=== PATIENT | female | born 1985 | race Caucasian/White ===

== ENCOUNTER 2019-11-26 09:03 | Outpatient (CLI) | payer BC, SELFPAY ==
--- NOTE | ~2019-11-26 | MMUS_ITS ---
EXAMINATION: MM diagnostic daniel BI w danielle, US breast RT limited HISTORY: Right breast mastodynia and swelling TECHNIQUE: Craniocaudal, mediolateral, and mediolateral oblique 3-D tomosynthesis images of the breas ts were performed and synthetic 2-D images were generated. CAD analysis was submitted and interpreted . High resolution limited right breast ultrasound was performed. COMPARISON: None, baseline BREAST PARENCHYMAL COMPOSITION: The breasts are heterogeneously dense, which may obscure small masses . FINDINGS: MAMMOGRAPHIC FINDINGS: Right breast: There is segmental focal asymmetry of the upper outer quadrant of the right breast. Ski n thickening is also noted in the upper outer breast. No suspicious mass, calcification, or conservation or heritage architect ural distortion are identified. Left breast: There is no evidence of suspicious mass, calcification, or architectural distortion to suggest malignancy. There has been no suspicious interval change. ULTRASOUND: There is widespread edema and skin thickening in the upper outer right breast. No suspicious cystic o r solid mass is identified. IMPRESSION: 1. Findings most consistent with mastitis of the right breast. 2. Recommend trial of antibiotics with repeat ultrasound if findings persist. BI-RADS Category 2: Benign finding(s). Reviewed, dictated and finalized at location A. IMPRESSION: 1. Findings most consistent with mastitis of the right breast. 2. Recommend trial of antibiotics with repeat ultrasound if findings persist. BI-RADS Category 2: Benign finding(s).
== END 2019-11-26 09:04 | disposition home or self-care (01) ==
PROVIDERS: Visit Provider Obstetrics & Gynecology
DX: N63.0 Unspecified lump in unspecified breast (principal); R92.8 Other abnormal and inconclusive findings on diagnostic imaging of breast
CPT/HCPCS: 76642; 77062; 77066; G0279

== ENCOUNTER 2020-02-23 20:21 | Emergency (ER) | payer BC, SELFPAY ==
--- NOTE | ~2020-02-23 | CT_ITS ---
EXAMINATION: CT lumbar spine wo con DATE: 02/24/2020 00:35 INDICATION: Severe low back pain TECHNIQUE: Computed tomography (CT) of the lumbar spine was performed without intravenous contrast. A utomated exposure control and iterative reconstruction technique were employed. The dose-length produ ct was 951.19 mGy-cm. COMPARISON: None FINDINGS: Bilateral L3 pars interarticularis defects with 1 mm anterolisthesis on L4. Alignment is otherwise no rmal. Vertebral body heights are normal. No fracture. Mild to moderate disc height loss with prominen t disc bulge resulting in mild central canal stenosis at L3-L4. Mild disc height loss with smaller di sc bulge and lesser degree of mild central canal stenosis at L4-L5. The disc bulges also result in mi ld bilateral neural foraminal stenosis at both levels. At L5-S1 there is moderate disc height loss wi th a disc bulge and right foraminal zone disc extrusion which moderate to severely narrows the right neural foramen. There are aggressive appearing erosive changes along both endplates as well as subtle haziness to the fat surrounding the bulging disc, both findings raising concern for discitis and ost eomyelitis. IUD in expected position within the endometrial canal. IMPRESSION: 1. Moderate disc height loss at L5-S1 with associated aggressive appearing endplate erosions and mild inflammatory haziness to the peridiscal fat which is concerning for discitis and osteomyelitis. Dr. Jimenez discussed these findings with Dr. Freitas at 8:45 AM. 2. Mild to moderate lumbar spondylosis most notable for bilateral pars interarticularis defects at L3 and right foraminal disc extrusion at L5-S1 resulting in moderate severe right neural foraminal sten osis at this level. 3. IUD in expected position. Reviewed, dictated and finalized at location A. IMPRESSION: 1. Moderate disc height loss at L5-S1 with associated aggressive appearing endp late erosions and mild inflammatory haziness to the peridiscal fat which is con cerning for discitis and osteomyelitis. Dr. Jimenez discussed these findings w ith Dr. Freitas at 8:45 AM. 2. Mild to moderate lumbar spondylosis most notable for bilateral pars interart icularis defects at L3 and right foraminal disc extrusion at L5-S1 resulting in moderate severe right neural foraminal stenosis at this level. 3. IUD in expected position.
[2020-02-23 21:08] VITALS: PULSE 98; RESP 18; TEMP 36.3; O2SAT 100
[2020-02-23 22:59] VITALS: BP 125/69; PULSE 70; RESP 14; O2SAT 97
--- NOTE | 2020-02-23 23:43 | ED.BACK ---
HPI - Back Pain/Injury General Chief Complaint: Back Pain/Injury Stated Complaint: back/hip pain Time Seen by Provider: 02/23/20 23:33 History of Present Illness HPI Narrative: Patient presents with her for severe lower back pain. Started a month ago when she got in and out of the jeep. Then they took a 5-hour car ride and when they arrived she could not move. She seen her PCP, and ER, and a chiropractor. She has had different pain medicines none of which are helping. She has sciatica on the right. She has no difficulty with urination or defecation. Sensation is fully intact. MD elicited complaint: back injury Onset (ago): week(s) Timing: constant Severity: severe Similar Symptoms Previously: Yes Location: lumbar spine Exacerbating factors: movement, supine positioning and walking Relieving factors: none Context: turning/twisting Associated symptoms: difficulty walking Related Data Allergies Allergy/AdvReac Type Severity Reaction Status Date / Time No Known Allergies Allergy Unknown Verified 12/08/08 13:51 Review of Systems Review of Systems: Narrative: CONSTITUTIONAL: Denies fever, chills, or sweats. EYES: Denies visual changes, redness, or discharge. ENT: Denies rhinorrhea, congestion, sore throat, or otalgia. CARDIOVASCULAR: Denies chest pain, palpitations, or edema. RESPIRATORY: Denies cough or dyspnea. GASTROINTESTINAL: Denies abdominal pain, nausea, vomiting, or diarrhea. GENITOURINARY: Denies dysuria or hematuria. SKIN: Denies rash or itching. MUSCULOSKELETAL: She has back pain, but not joint pain, or myalgia. NEUROLOGIC: Denies headache, numbness, or weakness. PSYCHIATRIC: Denies anxiety or depression. PMFSH Surgical History Surgical History (Updated 02/23/20 @ 23:45 by Marilyn Mead MD) No pertinent past surgical history Social History Social History (Updated 02/23/20 @ 23:45 by Marilyn Mead MD) Smoking status: Never smoker Alcohol intake: never Substance use: never Exam Narrative: Exam Narrative: GENERAL: Well-appearing, well-nourished, and in no acute distress. Sitting twisted in a wheelchair. HEAD: Normocephalic, atraumatic. EYES: PERRLA and EOMI. ENT: Nares clear, no rhinorrhea or epistaxis. Mucous membranes moist. NECK: Supple. CHEST: Clear to auscultation. No respiratory distress. HEART: Regular rate and rhythm. No murmur heard. Normal peripheral pulses. ABDOMEN: Soft, nontender, nondistended, normal active bowel sounds. EXTREMITIES: Normal range of motion. No edema. SKIN: Warm, dry, no rash. NEURO: No focal deficits. Alert and oriented x3. PSYCH: Normal mood and affect. Back: Tenderness in the lumbar area. Course Reevaluation(s) Reevaluation #1: Went in to tell the patient and her about the bulging disc at the bottom of her spine, and the probability that she will need an MRI and possibly surgery to repair that. She has an appointment for pain management tomorrow, but I told her to keep because they might build to do a steroid injection. I gave her the phone number for Dr. Chiang at [facility], Dr. Kam at [facility]. Date: 02/24/20 Time: 02:17 Vital Signs Vital signs: Vital Signs Temperature 97.4 F L 02/23/20 21:08 Pulse Rate 98 02/23/20 21:08 Respiratory Rate 18 02/23/20 21:08 Pulse Oximetry 100 02/23/20 21:08 Temperature 98.4 F 02/24/20 01:53 Pulse Rate 72 02/24/20 01:53 Respiratory Rate 16 02/24/20 01:53 Blood Pressure 113/73 02/24/20 01:53 Pulse Oximetry 98 02/24/20 01:53 MDM - Back Pain/Injury Differential Diagnosis Differential diagnosis: Likely lumbar radiculopathy and sciatica Medical Records Attestation: I reviewed the patient's medical records. Lab Data Labs: G Bedside Result Negative Reference Range: Negative Discharge Plan Discharge Clinical Impression: Lumbar disc disease Sciatica Qualifiers: Laterality: right Qualified Code(s): M54.31 - Sciatica, right side Patien
[2020-02-24 00:31] VITALS: TEMP 36.3
[2020-02-24 01:53] VITALS: BP 113/73; PULSE 72; RESP 16; TEMP 36.9; O2SAT 98
== END 2020-02-24 02:30 | disposition home or self-care (01) ==
PROVIDERS: Emergency Provider Emergency Medicine; PCP Physician Assistant
DX: M51.26 Other intervertebral disc displacement, lumbar region (principal); M54.41 Lumbago with sciatica, right side; R93.7 Abnormal findings on diagnostic imaging of other parts of musculoskeletal system
CPT/HCPCS: 72131; 81025; 96372; 99284; J1170

== ENCOUNTER 2020-03-09 08:34 | Outpatient (CLI) | payer BC, SELFPAY ==
--- NOTE | ~2020-03-09 | MR_ITS ---
EXAMINATION: MR lumbar spine wo con DATE: 03/09/2020 09:10 INDICATION: Lumbago with severe low back pain TECHNIQUE: Magnetic resonance imaging (MRI) of the lumbar spine was performed without intravenous con trast. Sequences included sagittal T2-weighted FSE, sagittal T2-weighted FS FSE, sagittal T1-weighted FSE, and axial T2-weighted FSE. COMPARISON: 02/24/2020 FINDINGS: Straightening of the normal lumbar lordosis. Vertebral body heights are normal. Bilateral pars intera rticularis defects at L3 without spondylolisthesis. Disc desiccation, annular fissure and mild to mod erate disc height loss at L3-L4. There is associated disc bulge resulting in mild central canal steno sis at this level. Disc desiccation and mild disc height loss at L4-L5 with mild disc bulge which olguin s not significantly narrow the central canal. Additional mild disc bulges with only minimal central c anal stenosis at the T11-T12 through L1-L2. The conus terminates at L2. There is normal spinal cord s ignal. T1 hyperintense hemangiomas at T12 and S1. Fibrofatty degenerative endplate changes at L3-L4. Severe disc height loss at L5-S1. There is increased fluid signal at the disc space as well as promin ent marrow edema and loss of T1 marrow fat signal in the adjacent L5 and S1 vertebral bodies. Erosive changes are seen at the endplates. Findings are consistent with discitis and osteomyelitis. There is peridiscal edema in the surrounding soft tissues. The fluid signal within the disc space appears to bulge the margins of the disc extending slightly cephalad and caudal to the level of the endplates al shyanne the right anterolateral margin of the disc space. Posterior there is also a small likely epidural fluid collection/abscess at the right foraminal zone and at the right lateral recess where it extend s approximately 1.4 cm craniocaudally and measuring 5 mm in AP thickness. There is additional edema a t the left and right lateral recesses with the disc bulge/likely abscess resulting in mild stenosis a t the left neural foramen and moderate stenosis at the right neural foramen. IMPRESSION: 1. Disc and marrow signal changes centered at L5-S1 consistent with discitis and osteomyelitis of bot h vertebral bodies. There also appears be a small peridiscal/epidural abscess most prominent at the r ight foraminal zone which moderately narrows the neural foramen. Dr. Jimenez discussed these finding s with Dr. Petit at 2:45 PM. 2. Mild to moderate lumbar spondylosis with chronic bilateral pars intra-articular is defects at L3. Reviewed, dictated and finalized at location A. IMPRESSION: 1. Disc and marrow signal changes centered at L5-S1 consistent with discitis an d osteomyelitis of both vertebral bodies. There also appears be a small peridis aleja/epidural abscess most prominent at the right foraminal zone which moderatel y narrows the neural foramen. Dr. Jimenez discussed these findings with Dr. Maurizio knapp at 2:45 PM. 2. Mild to moderate lumbar spondylosis with chronic bilateral pars intra-articu lar is defects at L3.
== END 2020-03-09 08:35 ==
PROVIDERS: PCP Physician Assistant; Visit Provider Nurse Practitioner Family
DX: M47.896 Other spondylosis, lumbar region (principal)
CPT/HCPCS: 72148

== ENCOUNTER 2025-05-05 10:26 | Outpatient (CLI) | payer BC, SELFPAY ==
--- NOTE | ~2025-05-05 | MMUS_ITS ---
EXAMINATION: MM diagnostic daniel BI w danielle, US breast RT limited INDICATION: 40-year old female; presents with a palpable lump in right breast that she felt a month ago. Patient cannot feel the lump at this time. She is also due for annual mammography. COMPARISON: 11/26/2019 TECHNIQUE: Digital breast tomosynthesis bilateral ML, MLO and CC views and spot compression with magnification in CC and MLO views of right breast were obtained with computer-aided detection to assist in interpretation of the study. FINDINGS: The breasts are heterogeneously dense, which may obscure small masses. Irregular shaped mass containing punctate calcifications has developed and persists on spot compression views in the upper slightly outer right breast at middle third. In addition, there is a focal asymmetry with subtle architectural distortion seen in the superior central right breast at posterior third. Several punctate calcifications are associated with this focal asymmetry. Ultrasound was performed for further evaluation. RIGHT BREAST ULTRASOUND FINDINGS: Targeted evaluation of upper outer right breast was completed. Prominent dilated ducts and several cysts including a cluster of cysts at demonstrated at 11:00, 4 cm FN and at 11:00, 2 cm from the nipple. These sonographic findings does not correlates to the areas of concern on the mammogram. IMPRESSION: 1. Suspicious right breast irregular marginated mass containing calcifications in the upper slightly outer location. 2. Indeterminate focal asymmetry associated with subtle architectural distortion and containing several foci of calcifications. 3. No mammographic evidence of malignancy within the left breast. RECOMMENDATIONS: 1. Given the disparity between the mammography findings and lack of correlating lesion on the ultrasound examination, bilateral breast MRI is recommended for problem solving which should be completed before the biopsy. 2. Consider stereotactic core needle biopsy of mass containing calcification in the upper outer right breast. BI-RADS 4, SUSPICIOUS Reviewed, dictated and finalized at location B. IMPRESSION: 1. Suspicious right breast irregular marginated mass containing calcifications in the upper slightly outer location. 2. Indeterminate focal asymmetry associated with subtle architectural distorti on and containing several foci of calcifications. 3. No mammographic evidence of malignancy within the left breast. RECOMMENDATIONS: 1. Given the disparity between the mammography findings and lack of correlatin g lesion on the ultrasound examination, bilateral breast MRI is recommended for problem solving which should be completed before the biopsy. 2. Consider stereotactic core needle biopsy of mass containing calcification i n the upper outer right breast. BI-RADS 4, SUSPICIOUS
--- OUTSIDE RECORDS SUMMARY | 2025-05-05 12:10 | XMS_ITS | Encounter Summary ---
Author Organization [facility] Address [address] [place] [address] Care Team Providers Care Wire Machine Cutter Name Role Phone Rhea Patiño Primary Care Provider [phone] Encounter Details Date Type Department Care Team (Late st Contact Info) Description 03/20/2020 Hospital Orders Only [facility] [address] [place] [address] Kiko Rubio MD [address] [address] Social History Tobacco Use Types Packs/Day Years Used Date Smoking Tobacco: Every Day Cigarettes 0.3 15 Smokeless Tobacco: Never Alcohol Use Standard Drinks/Week Comments Yes 0 (1 standard drink = 0.6 oz pur e alcohol) socially AUDIT-C Answer Date Recorded Frequency of Alcohol Consumption 2-4 times a sun03/10/2020 Average Number of Drinks Not on file 020 Frequency of Binge Drinking Not on file 02/24 Comments No Sex and Gender Information Value Date Recorded Sex Assigned at Female 03/11/2020 1:09 AM CDT Legal Sex Female 5:57 PM CDT Gender Identity Female 03/11/2020 1:09 AM CDT Sexual Orientation Straight 03/11/2020 1: 09 AM CDT COVID-19 Exposure Response Date Recorded In the last month, have you been in contact with someone who was confirmed or suspected to have Coronavirus / COVID-19? No / Unsure 03/23/2020 11:56 AM CDT documented as of this encounter Functional Status * RETIRED Are you deaf or do you have serious difficulty hearing Answer Date of Assessment Author Status No 03/11/2020 1:12 AM CDT Activ e * RETIRED Are you blind or do you have serious difficulty seeing, even when wearing glasses? Answer Date of Assessment Author Status No 03/11/2020 1:12 AM CDT Activ e * Do you have serious difficulty walking or climbing stairs? Answer Date of Assessment Author Status No 03/11/2020 1:12 AM CDT Rama Purcell RN Active * Do you have difficulty dressing or bathing? Answer Date of Assessment Author Status No 03/11/2020 1:12 AM CDT Rama Purcell RN Active * Because of a physical, mental, or emotional condition, do you have difficulty doing errands alone such as visiting a doctor's office or shopping? Answer Date of Assessment Author Status No 03/11/2020 1:12 AM CDT Rama Purcell RN Active documented as of this encounter Mental Status * Because of a physical, mental, or emotional condition, do you have serious difficulty concentrating, remembering, or making decisions? Answer Entry Date Author Status No 03/11/2020 1:12 AM CDT Rama Purcell RN Active documented in this encounter Plan of Treatment Not on file documented as of this encounter Visit Diagnoses Not on filedocumented in this encounter Care Teams Wire Machine Cutter Relationship Specialty Start [place] [address] [place] [address] PCP - General PHYSICIAN MANNEQUIN MOLDER 02/19/20 documented as of this encounter
--- OUTSIDE RECORDS SUMMARY | 2025-05-05 12:10 | XMS_ITS | Encounter Summary ---
Author Organization [facility] Address [address] [place] [address] Care Team Providers Care Master Coastwise Yacht Name Role Phone Rhea Patiño Primary Care Provider [phone] Encounter Details Date Type Department Care Team (Late st Contact Info) Description 04/12/2020 Therapy Plan [facility] [address] [place], [place] [id number] Social History Tobacco Use Types Packs/Day Years [...] have Coronavirus / COVID-19? No / Unsure 04/15/2020 12:00 PM CDT documented as of this encounter Functional [...] Assessment Author Status No 03/11/2020 1:12 AM CARLEYT Rama Purcell RN Active documented as of this encounter Mental Status * Because of a physical, mental, or emotional condition, do you have serious difficulty concentrating, remembering, or making decisions? Answer Entry Date Author Status No 03/11/2020 1:12 AM Rama Tinsley RN Active documented in this encounter Plan of Treatment Not on file documented as of this encounter Visit Diagnoses Not on filedocumented in this encounter Care Teams Master [employer] Yacht Relationship Specialty Start [place] [address] [place] [address] PCP - General PHYSICIAN PLANT ENGINEER 02/19/20 documented as of this encounter
--- OUTSIDE RECORDS SUMMARY | 2025-05-05 12:10 | XMS_ITS | Encounter Summary ---
Author Organization [facility] Address [address] [place] [address] Care Team Providers Care Radiation Control Specialist Name Role Phone Rhea Patiño Primary Care Provider [phone] Encounter Details Date Type Department Care Team (Late st Contact Info) Description 03/16/2020 Therapy Plan [facility] [address] [place] [address] Kiko Rubio MD [address] [address] Social History Tobacco Use Types [...] have Coronavirus / COVID-19? No / Unsure 03/19/2020 12:01 PM CDT documented as of this encounter [...] Assessment Author Status No 03/11/2020 1:12 AM Rama Tinsley RN Active documented as of this encounter Mental Status * Because of a physical, mental, or emotional condition, do you have serious difficulty concentrating, remembering, or making decisions? Answer Entry Date Author Status No 03/11/2020 1:12 AM Rama Tinsley RN Active documented in this encounter Plan of Treatment Not on file documented as of this encounter Visit Diagnoses Diagnosis Osteomyelitis, unspecified site, unspecified type (CMS/HCC [facility])- Primary documented in this encounter Care Teams Radiation Control Specialist Relationship Specialty Start [place] [address] [place] [address] PCP - General PHYSICIAN COURT MONITOR 02/19/20 documented as of this encounter
--- OUTSIDE RECORDS SUMMARY | 2025-05-05 12:10 | XMS_ITS | Clinical Summary ---
Author Organization [facility] Address [facility] [place] [address] Care Team Providers Care Flight Service Specialist Name Role Phone Rhea Patiño Primary Care Provider [phone] Allergies Active Allergy Reactions Criticality Noted Date Comments Vancomycin Redmans syndrome Low 03/12/2020 Medications No known medications Active Problems Problem Noted Date Diagnosed Date Osteomyelitis, unspecified s ite, unspecified type ([facility]/HCC [facility]) 03/10/2020 Discitis 03/10/2020 Immunizations Immunization Administration Dates Next Due PFIZER COVID-19 (ORIGINAL FO RMULATION, PURPLE CAP) mRNA, LNP-S, PF, 30 MCG/0.3 ML DOSE 05/03/2021,04/07/2021 Family History Medical History Relation Comments Hypertension Father Hypertension Mother Relation Status Comments Father Alive Mother Alive Social History Tobacco Use Types Packs/Day Years Used Date Smoking Tobacco: Every Day Cigarettes 0.3 15 Passive Smoke Exposure: Current Smokeless Tobacco: Never Tobacco Cessation:Ready to Q uit: No; Counseling Given: Yes Alcohol Use Standard Drinks/Week Comments Yes 0 (1 standard drink = 0.6 oz pur e alcohol) socially AUDIT-C Answer Date Recorded Frequency of Alcohol Consumption 2-4 times a mon th 03/10/2020 Average Number of Drinks Not on file 020 Frequency of Binge Drinking Not on file 02/24 PHQ-2 Answer Date Recorded Patient Health Questionnaire-2 Score 0 06/11/2023 Comments No Sex and Gender Information Value Date Recorded Sex Assigned at Female 03/11/2020 1:09 AM CDT Legal Sex Female 5:57 PM CDT Gender Identity Female 03/11/2020 1:09 AM CDT Sexual Orientation Straight 03/11/2020 1: 09 AM CDT Last Filed Vital Signs Vital Sign Reading Time Taken Comments Blood Pressure 139/80 06/11/2023 11:46 AM CDT Pulse 87 06/11/2023 11:46 AM CDT Temperature 37 C (98.6 F) 06/11/2023 11:46 AM CDT Respiratory Rate 18 06/11/2023 11:46 AM CDT Oxygen Saturation 96% 06/11/2023 11:46 AM CDT Inhaled Oxygen Concentration - - Weight 100.7 kg (222 lb) 06/11/2023 11:46 AM CDT Height 167.6 cm (5' 6) 06/11/2023 11:46 AM CDT Body Mass Index 35.83 06/11/2023 11:46 AM CDT Plan of Treatment Health Maintenance Due Date Last Done Comments Annual Physical 1987 Hepatitis C 2002 DTaP, Tdap and Td Vaccines ( 1 - Tdap) 2003 Hepatitis B Vaccines (1 of 3 - 19+ 3-dose series) 2003 Pneumococcal Vaccine: Pediatrics (0 to 5 Years) and At-Risk Patients (6 to 49 Years) (1 of 2 - PCV) 2003 HPV Vaccines (1 - 3-dose SCD M series) 2011 Cervical Cancer Screening Pa p with HPV Testing (Age 30 to 64) Every 5 Years 2014 Cervical Cancer Screening Pa p Smear (Age 30 to 64) Every 3 Years 04/09/2016 04/09/2013 Cervical Cancer Screening wi HPV 04/09/2016 Mammogram Screening 2024 PHQ-2 (Physician [place]uther[place]) 08/27/2024 06/11/2023 COVID-19 Vaccine (3 - 2024-2 6 season) 2025 05/03/2021, 04/07/2021 Meningococcal B Vaccine Aged Out No l onger eligible based on patient's age to complete this topic Meningococcal Vaccine Aged Out No allie odette eligible based on patient's age to complete this topic RSV Immunizations Under 20 Months Aged Out No longer eligible b ased on patient's age to complete this topic Procedures Procedure Name Priority Date/Time Associated Diagnosis Comments OUTSIDE CYTOPATH CERV/VAG INTERPRET (PAP) (SCAN ORDER) Routine 04/09/2013 12:00 AM CDT from Last 3 Months or Most Recently Relevant to Health Maintenance Results * PAP SMEAR (04/09/2013 12:00 AM CDT) 04/09/2013 us Documents Scanned SCANNING Final Result [facility] from Last 3 Months or Most Recently Relevant to Health Maintenance Insurance Advance Directives * Full Code (Latest Code Status on File) Date Activated Date Inactivated Comments 03/11/2020 12:01 AM 03/15/2020 8:19 PM Care Teams Flight Service Specialist Relationship Specialty Start [place] [address] [place] [address] PCP - General PHYSICIAN SLIVER LAP TENDER 02/19/20
--- OUTSIDE RECORDS SUMMARY | 2025-05-05 12:10 | XMS_ITS | Clinical Summary ---
Author Organization [facility] [address] Address [address] [facility] [address] [place] [address] Phone Care Team Providers Care Cookie Padder Name Role Phone Unavailable Primary Care Provider Unavailabl e Social History Tobacco Use Types Packs/Day Years Used Date Smoking Tobacco: Never Assessed Comments Unknown Sex and Gender Information Value Date Recorded Sex Assigned at Not on file Legal Sex Female 1:32 PM CDT Gender Identity Not on file Sexual Orientation Not on file Plan of Treatment Health Maintenance Due Date Last Done Comments DTAP/TDAP/TD VACCINES (1 - Tdap) 2003 HEPATITIS B VACCINES (1 of 3 - 19+ 3-dose series) 02/24 HPV/Cotest (21-29) 2005 HPV VACCINES (1 - 3-dose SCDM series) 2011 CERVICAL CANCER SCREENING 2014 HPV/Cotest (30-65) 2014 PAP SMEAR 2014 BREAST CANCER SCREENING 2024 INFLUENZA VACCINE (#1) 2025
== END 2025-05-05 10:27 | disposition home or self-care (01) ==
LOC: ANHFOHIMG 10:29
PROVIDERS: PCP Physician Assistant; Visit Provider Student in an Organized Health Care Education/Training Program
DX: N63.0 Unspecified lump in unspecified breast (principal); R92.8 Other abnormal and inconclusive findings on diagnostic imaging of breast
CPT/HCPCS: 76642; 77062; 77066; G0279

== ENCOUNTER 2025-06-10 06:53 | Outpatient (CLI) | payer BC, SELFPAY ==
--- NOTE | ~2025-06-10 | MR_ITS ---
MR breast BI wo/w con 06/15/2025 11:44 CDT INDICATION: Abnormal finding on recent mammogram without correlate on ultrasound. TECHNIQUE: MRI of the breasts perform using standard protocol pre-and post IV contrast with the following sequences: Axial T2 STIR, axial T1, axial vibrant T1 with fat suppression precontrast and multiphasic postcontrast. 19 cc MultiHance administered intravenously. COMPARISON: Comparison to multiple prior studies sequentially, with oldest reviewed study dated 11/26/2019. FINDINGS: Right breast: There is mild background parenchymal enhancement. There is a region of nonmass-like enhancement in the right breast in the upper outer quadrant at approximately 10:00, anterior third, measuring 4.2 x 2.3 x 4 cm. Enhancement is heterogeneous with rapid initial uptake and washout (type III kinetics). No discrete mass or internal septations identified. No associated skin thickening or chest wall invasion. No abnormal axillary or internal mammary lymph nodes are identified. Left breast: No suspicious mass or nonmass enhancement. Background parenchymal enhancement is mild. No abnormal lymph nodes are seen. IMPRESSION: 1: Suspicious nonmass-like enhancement in the right breast upper outer quadrant at 10:00, anterior third, measuring 4.2 x 2.3 x 4 cm with rapid washout enhancement. BI-RADS Category 4: Suspicious abnormality. Recommend MR guided biopsy for histologic diagnosis. BI-RADS CATEGORY 4-SUSPICIOUS ABNORMALITY Reviewed, dictated and finalized at location O. IMPRESSION: 1: Suspicious nonmass-like enhancement in the right breast upper outer quadrant at 10:00, anterior third, measuring 4.2 x 2.3 x 4 cm with rapid washout enhanc ement. BI-RADS Category 4: Suspicious abnormality. Recommend MR guided biopsy f or histologic diagnosis. BI-RADS CATEGORY 4-SUSPICIOUS ABNORMALITY
== END 2025-06-10 06:54 | disposition home or self-care (01) ==
PROVIDERS: PCP Physician Assistant; Visit Provider Student in an Organized Health Care Education/Training Program
DX: N63.11 Unspecified lump in the right breast, upper outer quadrant (principal)
CPT/HCPCS: 77049; A9577; C8908

== ENCOUNTER 2025-06-30 08:26 | Outpatient (CLI) | payer BC, SELFPAY ==
--- NOTE | ~2025-06-30 | MM_ITS ---
AutoText: MM stereotactic bx RT, MM stereotactic specimen RT CLINICAL HISTORY: 40-year-old female with suspicious nonmass enhancement in the upper outer right breast 10:00 location with correlating mammographic focal asymmetry that contains calcifications. Patient presents for stereotactic core needle biopsy procedure. PROCEDURE: Stereotactic breast biopsy. The patient was brought into the stereotactic suite. A time-out procedure was performed. Preliminary images of the right breast were obtained to localize the focal asymmetry with calcifications. The area was then prepped and draped in the usual sterile fashion. 1% lidocaine was administered to the superficial soft tissues and 1% lidocaine without epinephrine was administered to the deeper soft tissues for local anesthesia. A becki was made in the skin and the 9 gauge Brevera biopsy needle was inserted through the becki and localized to the calcifications with confirmation by mammography. Multiple biopsy specimens were obtained. Images of the biopsy specimens demonstrate numerous calcifications corresponding with the suspicious calcifications associated with focal asymmetry seen on the mammogram. A butterfly [place] Justus was placed in the biopsy site at the end of the procedure. Pressure was held at the site of biopsy and entry site for the needle until hemostasis was achieved. The patient tolerated the procedure well with no immediate post procedure complications. The biopsy specimens were sent to pathology for evaluation. Mammograms of the right breast in the craniocaudal and true lateral projections demonstrate the microclip in the biopsy site. IMPRESSION: Technically successful stereotactic biopsy of right breast focal asymmetry with calcifications. The patient tolerated the procedure well with no immediate post procedure complications. Pathology report is pending. Reviewed, dictated and finalized at location B. MOBILE CONTRACT CLERK IMPRESSION: Technically successful stereotactic biopsy of right breast focal as ymmetry with calcifications. The patient tolerated the procedure well with no i mmediate post procedure complications. Pathology report is pending.
--- OUTSIDE RECORDS SUMMARY | 2025-06-30 08:47 | XMS_ITS | Clinical Summary ---
Author Organization [employer] [address] - [address] Address [address] [facility] [address] [place] [address] Phone Care Team Providers Care Die Storage Clerk Name Role Phone Unavailable Primary Care Provider [...]
--- NOTE | 2025-06-30 10:41 | S_PTH ---
PATIENT: Kate Sanchez LOC: [facility] U#:[id number] AGE/SX: 40/F ROOM: RE06/30/[address]: Tatyana Small MD : [id number] BED: DIS: 06/30/2025 SPEC #: [id number] RECD: 06/30/25 12:10 STATUS: JAMIE REMikal #: [id number] TORY: 06/30/25 10:[address]: Tatyana Small DEPT: [facility] Surgical RECD BY: Gissell Lira ENTERED: 06/30/25 12:12 SP TYPE: Surgical OTHR DR: Rhea Patiño, PA Tissues: A - Breast Biopsy B - Breast Biopsy C - Breast Biopsy D - Breast Biopsy E - Breast Biopsy F - Breast Biopsy G - Breast Biopsy H - Breast Biopsy I - Breast Biopsy J - Breast Biopsy K - Breast Biopsy L - Breast Biopsy Procedures: Hematoxylin and Eosin Stain Gross and Microscopic Level 4
== END 2025-06-30 08:27 | disposition home or self-care (01) ==
LOC: ANHFOHIMG 08:27
PROVIDERS: PCP Physician Assistant; Visit Provider Surgery
DX: R92.8 Other abnormal and inconclusive findings on diagnostic imaging of breast (principal); R92.0 Mammographic microcalcification found on diagnostic imaging of breast; N60.11 Diffuse cystic mastopathy of right breast
CPT/HCPCS: 19081; 88305

== ENCOUNTER 2025-07-31 15:55 | Outpatient (CLI) | payer BC, SELFPAY ==
--- OUTSIDE RECORDS SUMMARY | 2025-07-31 16:01 | XMS_ITS | Encounter Summary ---
Author Organization [facility] Address [address] [place] [address] Care Team Providers Care Self Pay Representative Name Role Phone Rhea Patiño Primary Care Provider [phone] Encounter Details Date Type Department Care Team (Late st Contact Info) Description 04/12/2020 Therapy Plan [facility] One Day Services [address] [place], [place] [id number] Social History Tobacco Use Types Packs/Day Years [...] on filedocumented in this encounter Care Teams Self Pay Representative Relationship Specialty [place] [address] [place] [address] PCP - General PHYSICIAN BULL RIVETER 02/19/20 documented as of this encounter
--- OUTSIDE RECORDS SUMMARY | 2025-07-31 16:01 | XMS_ITS | Clinical Summary ---
Author Organization [employer] [address] - [address]22 Address [address] [facility] [address] [place] [address] Phone Care Team Providers Care Casting Trucker Name Role Phone Unavailable Primary Care Provider [...]
--- OUTSIDE RECORDS SUMMARY | 2025-07-31 16:01 | XMS_ITS | Clinical Summary ---
Author Organization [facility] Address [address] [place] [address] Care Team Providers Care Toe Stapler Name Role Phone Rhea Patiño Primary Care Provider + [phone] Allergies Active Allergy Reactions Criticality Noted Date Comments Vancomycin Redmans syndrome Low 03/12/2020 Medications No known medications Active Problems Problem Noted Date Diagnosed Date Osteomyelitis, unspecified site, unspecified typ e 03/10/2020 Discitis 03/10/2020 Encounters Date Type Department Care Team Description 06/30/2025 Scan [facility] Scanned, Doc [facility] Mammogram (SCAN); Pathology (SCAN) 06/10/2025 Scan [facility] Scanned, Doc [facility] MRI (SCAN) 05/05/2025 Scan [facility] Scanned, Doc Med Group Mammogram (SCAN); Ultrasound (SCAN) from Last 3 Months Immunizations Immunization Administration Dates Next Due PFIZER [...] Average Number of Drinks Not on file 07/15/2 020 Frequency of Binge Drinking Not on [...] Years 04/09/2016 04/09/2013 Cervical Cancer Screening wi th HPV 04/09/2016 PHQ-2 (Physician Andreafski) 08/27/2024 COVID-19 Vaccine (3 - 2024-2 6 season) 2025 05/03/2021, 04/07/2021 Influenza Adult (#1) 2025 Mammogram Screening 06/30/2027 06/30/2025, 06/30/2025, 05/05/2025 Hepatitis A Vaccines Aged Out No long er eligible based on patient's age to complete this topic Meningococcal B Vaccine Aged Out No l onger eligible based on patient's age to complete this topic Meningococcal Vaccine Aged Out No allie odette eligible based on patient's age to complete this topic RSV Immunizations Under 20 Months Aged Out No longer eligible b ased on patient's age to complete this topic Procedures Procedure Name Priority Date/Time Associated Diagnosis Comments PATHOLOGY GENERIC (SCAN ORDER) 06/30/2025 MAMMOGRAM GENERIC (SCAN ORDER) 06/30/2025 MAMMOGRAM GENERIC (SCAN ORDER) 06/30/2025 MRI GENERIC 06/10/2025 MAMMOGRAM GENERIC (SCAN ORDER) 05/05/2025 ULTRASOUND GENERIC (SCAN ORDER) 05/05/2025 OUTSIDE CYTOPATH CERV/VAG INTERPRET (PAP) (SCAN ORDER) Routine 04/09/2013 12:00 AM CDT from Last 3 Months or Most Recently Relevant to Health Maintenance Results * PATHOLOGY GENERIC (SCAN ORDER) (06/30/2025) 06/30/2025 [facility] Scanned SCANNING Final Resu lt * MAMMOGRAM GENERIC (SCAN ORDER) (06/30/2025) Only the most recent of3 resultswithin the time period is included. Anatomical Region Laterality Modality Other 06/30/2025 us [facility] Scanned SCANNING Final Resu lt * MRI GENERIC (06/10/2025) Anatomical Region Laterality Modality Other 06/10/2025 [facility] Scanned SCANNING Final Resu lt * ULTRASOUND GENERIC (SCAN ORDER) (05/05/2025) Anatomical Region Laterality Modality Other 05/05/2025 us I Do Now I Don't Med Group Scanned SCANNING Final Resu lt * PAP SMEAR (04/09/2013 12:00 AM CDT) 04/09/2013 us Documents Scanned SCANNING Final Result [facility] from Last 3 Months or Most Recently Relevant to Health Maintenance Insurance Advance Directives * Full Code (Latest Code Status on File) Date Activated Date Inactivated Comments 03/11/2020 12:01 AM 03/15/2020 8:19 PM Care Teams Toe Stapler Relationship Specialty Start [place] [address] [place] [address] PCP - General PHYSICIAN ELECTRIC UTILITY LINEWORKER 02/19/20
--- OUTSIDE RECORDS SUMMARY | 2025-07-31 16:01 | XMS_ITS | Encounter Summary ---
Author Organization [facility] Address [address] [place] [address] Care Team Providers Care Ultra Sound Technician Name Role Phone Rhea Patiño Primary Care Provider [phone] Encounter Details Date Type Department Care Team (Late st Contact Info) Description 03/20/2020 Hospital Orders Only [facility] One Day Services [address] [place] [address] Kiko Rubio MD [address] [address] Social History Tobacco Use Types [...] on filedocumented in this encounter Care Teams Ultra Sound Technician Relationship Specialty Start [place] [address] [place] [address] PCP - General PHYSICIAN ROLL PLUGGER 02/19/20 documented as of this encounter
--- OUTSIDE RECORDS SUMMARY | 2025-07-31 16:01 | XMS_ITS | Encounter Summary ---
Author Organization [facility] Address [address] [place] [address] Care Team Providers Care Condenser Operator Name Role Phone Rhea Patiño Primary Care Provider [phone] Encounter Details Date Type Department Care Team (Late st Contact Info) Description 03/16/2020 Therapy Plan [facility] One Day Services [address] [place] [address] Kiko Rubio MD [address] [address] Social History Tobacco Use Types [...] Author Status No 03/11/2020 1:12 AM Rama Tinsely RN Active documented in this encounter Plan of Treatment Not on file documented as of this encounter Visit Diagnoses Diagnosis Osteomyelitis, unspecified site, unspecified type (CMS/HCC [facility])- Primary documented in this encounter Care Teams Condenser Operator Relationship Specialty Start [place] [address] [place] [address] PCP - General PHYSICIAN TRIAL CONSULTANT 02/19/20 documented as of this encounter
[2025-07-31 16:08] LABS: Hematocrit 42.3 % (37.0-47.0); Hemoglobin 14.2 g/dL (12.0-15.0); Immature Granulocyte Percent A 0.5 % (0-0.5); Lymphocytes Absolute Auto 1.80 K/mm3 (0.9-3.2); Mean Corpuscular HGB Conc 33.6 g/dl (32-36); Mean Corpuscular Hemoglobin 30.3 pg (26-34); Mean Corpuscular Volume 90.4 fl (80-100); Nucleated Red Blood Cells Absolute Auto 0.000 K/mm3 (0.0-0.012); Nucleated Red Blood Cells Perc 0.0 % (0.0-0.2); Platelet Count Result 270 k/mm3 (150-375); Red Blood Count 4.68 M/mm3 (4.2-5.4); White Blood Count 7.5 K/mm3 (4.5-10.0)
[2025-07-31 16:34] LABS: Alanine Aminotransferase 26 U/L (6-35); Albumin Level 4.2 g/dL (3.5-5.1); Alkaline Phosphatase 58 U/L (38-126); Anion Gap 4 mmol/L (4-12); Aspartate Amino Transferase 28 U/L (14-36); Bilirubin,Total 0.5 mg/dL (0.2-1.3); Blood Urea Nitrogen 14 mg/dL (7-17); Calcium 9.1 mg/dL (8.4-10.2); Carbon Dioxide 26 mmol/L (22-30); Chloride 105 mmol/L (98-107); Estimated Glomerular Filt Rate > 60; Glucose 123 mg/dL (65-110); Potassium 4.1 mmol/L (3.4-5.0); Sodium 135 mmol/L (137-145); Total Protein 7.3 g/dL (6.3-8.2)
== END 2025-07-31 15:56 | disposition home or self-care (01) ==
LOC: ANHLAB 15:56
PROVIDERS: PCP Physician Assistant; Visit Provider Student in an Organized Health Care Education/Training Program
DX: D25.9 Leiomyoma of uterus, unspecified (principal); Z01.818 Encounter for other preprocedural examination
CPT/HCPCS: 36415; 80053; 85025; 86850; 86900; 86901

== ENCOUNTER 2025-08-04 11:10 | Inpatient (IN) | payer BC, SELFPAY ==
[2025-07-31 10:34] VITALS: BMI 34.1
--- NOTE | 2025-07-31 10:40 | PC.NURSE ---
[facility] has started construction of its new state of the art ER which will open Spring 2026. With this, we anticipate parking may be a challenge for some our surgical patients and families. Parking spaces are limited but are available for all Surgical, obstetrics, and ER patients sharing this lot. If you arrive and find you are having a hard time finding a parking space, please note that we understand the challenges, please drive around the hospital and park near Hospital Entrance 1. When you enter this entrance, you can ask a volunteer to direct or take you back to the surgical waiting area to check in. We appreciate everyone?s understanding of these expected challenges while we build for your future. Report to the Outpatient Waiting Room, entrance under the green pavilion located off [address], at time _0930__ on date __08/04/25_. Planned Procedure Time: _1130_.? Time changes happen often and if your time is changed the preop area will call you the afternoon before. - You and your visitor will be asked to self-screen and do not enter if you have any COVID symptoms. Please call surgeon if you need to reschedule. - A mask is optional within the hospital at this time. Patients may have clear liquids (water, carbonated beverages, clear teas, apple juice) until 3 hours prior to surgery with a maximum of 20 ounces. - No food from midnight until time of surgery and no smoking, or chewing tobacco (or any form of nicotine). No chewing gum, candy or mints. Take only the following medications with a SIP of water on the morning of surgery: NONE DO NOT STOP ANY OF YOUR OTHER PRESCRIPTION MEDICATIONS PRIOR TO SURGERY EXCEPT THE FOLLOWING Hold all vitamins and supplements for 3 days per anesthesiologist. Medications to discontinue per physician Date to take last dose Please no make-up, nail hungarian, hairspray, perfume, deodorant, or body powder the day of surgery.? No jewelry (including any body piercings) or valuables the day of surgery, leave them at home.? Please take a shower or bath the night before, or the morning of, surgery with an antibacterial soap.? Wear comfortable, loose fitting clothing.? Children are encouraged to wear pajamas. - Jewelry must be removed prior to entering the operating room.? Rings and piercings that are not removed may be cut off. - The hospital will not accept responsibility for valuables.? - Please leave all valuables, including medications, at home the day of surgery. If you are going home after surgery, a licensed bus van driver must drive you home.? - NO public transportation without another adult if you receive anesthesia. - We recommend that an adult stay with you for 24 hours following discharge. - We also recommend that you do not drive, make important decision, drink alcoholic beverages, or take any drugs that were not prescribed by your health care provider for at least 24 hours after your discharge time. For Pediatric surgeries, we recommend two adults accompany the child home. Follow any additional instructions given to you from your surgeon. Telephone instructions given to _PATIENT_and asked if any additional questions and then verbalized understanding. Patient advised to call surgeon office or pre surgery nurse liaison [phone] if any additional questions.
--- NOTE | 2025-08-03 17:07 | P.HP_ITS ---
H&P: HPI History of Present Illness Date/Time: 08/03/25 17:07 Chief Complaint: uterine fibroid pelvic pain Narrative: 40-year-old female who presents for total abdominal hysterectomy and bilateral salpingectomy. Patient was recently seen for annual exam and was requesting IUD removal. IUD strings were unable to be seen pelvic ultrasound was ordered to confirm IUD placement. Ultrasound revealed a large fibroid uterus. Patient has been experiencing some pelvic pain and discomfort since the ultrasound. Review of Systems Cardiovascular: Cardiovascular: Denies chest pain, Denies leg edema, Denies palpitations, Denies dyspnea and Denies dyspnea on exertion Respiratory: Respiratory: Denies cough, Denies dyspnea and Denies dyspnea on exertion Gastrointestinal: Gastrointestinal: Denies abdominal pain, Denies constipation, Denies diarrhea, Denies nausea and Denies vomiting Genitourinary: Genitourinary: Denies hematuria, Denies urinary frequency, Denies dysuria, Denies pelvic pain, Denies urinary incontinence and Denies vaginal discharge Neurologic: Reports system reviewed and no additional complaints, except as documented Psychiatric: Psychiatric: Reports no additional psychiatric complaints Endocrine: Endocrine: Denies palpitations [facility] Surgical History Surgical History No pertinent past surgical history Family History Family History Father Hypertension Mother Hypertension Social History Social History Smoking status: Current some day smoker Tobacco type: cigarettes Additional smoking assessment comments: 4-5 CIGS PER WEEK-20 Alcohol intake: current Drinks per week: 8 Substance use: never Substance use type: does not use Lack of Transportation: No Lack of Food: Never True Current Housing: I Have Housing Concerned About Future Housing: Decline to Answer Difficulty Paying Gas/Electric Bills: Decline to Answer Difficulty Paying for Meds: Decline to Answer Currently Unemployed: Decline to Answer Education: Decline to Answer Difficulty w/ Childcare or Family Care: Decline to Answer Living arrangements: with family Occupation/Education: occupation Gender identity (if verbalized by the patient): Female Meds Home Medications and Allergies Home Medications ?Medication ?Instructions ?Recorded ?Confirmed ?Type No Home Medications 07/02/25 07/31/25 H istory Allergies Allergy/AdvReac Type Severity Reaction Status Date / Time No Known Allergies Allergy Unknown Verified 07/31/25 10:33 Exam Const: General: no acute distress Eyes: EOM: EOMs intact bilaterally Neck: Neck: supple Thyroid: thyroid normal Chest: Breast/axilla inspection: normal inspection of the breasts Breast/axilla palpation: normal palpation of the breasts, normal palpation of the axillae and no axillary lymphadenopathy Resp: Effort & Inspection: normal respiratory effort Auscultation: clear to auscultation bilaterally Cardio: Rate: regular rate Rhythm: regular rhythm GI: Inspection: non-distended GI Palp: Yes Soft to palpation, No Tenderness to palpation present (GI) and No Guarding due to palpation present (GI) Auscultation: normal bowel sounds : General: No bladder normal to palpation External Female Exam: normal external appearance Speculum Exam - Vagina: normal vaginal discharge and No vaginal bleeding Speculum Exam - Cervix: nontender Bimanual exam- vagina & uterus: No bladder normal to palpation and No Cervical tenderness present OB/external & speculum: No vaginal bleeding Skin: General skin exam: normal color and no rashes or lesions noted Neuro: Cognition (Neuro): normal cognition Speech: normal speech Extrem: General: normal to inspection and no edema Psych: Mental Status: mental status grossly normal Affect: normal affect Assessment and Plan Assessment and plan (1) Uterine fibroid: Code(s): D25.9 - Leiomyoma of uterus, unspecified Status: Acute Assessment and Plan: patient recently had ultrasound to confirm IUD placement Ultrasound showed an enlarged uterus with a large midline fibroid Uterus measured 20 cm in length and 12 cm wide with a 16 cm midline uterine fibroid Discussed uterine fibroids at length Management options reviewed Patient given printed handout regarding uterine fibroids Discussed that given the size of her uterine fibroid, would recommend hysterectomy as definitive management Hysterectomy discussed at length Risks, benefits, alternatives reviewed Given the size of the uterus and fibroid, would recommend abdominal hysterectomy with bilateral salpingectomy via laparotomy (2) Pelvic pain: Code(s): R10.20 - Pelvic and perineal pain unspecified side Status: Acute
[2025-08-04] VITALS (12 sets, daily range): BP systolic 97–133; BP diastolic 58–78; PULSE 63–100; RESP 12–19; TEMP 36.3–36.7; O2SAT 92–100; BMI 35.7
--- OUTSIDE RECORDS SUMMARY | 2025-08-04 02:15 | XMS_ITS | Clinical Summary ---
Author Organization [employer] [address] - [address]22 Address [address] [facility] [address] [place] [address] Phone Care Team Providers Care Tool Inspector Name Role Phone Unavailable Primary Care Provider [...] 19+ 3-dose series) 02/24 HPV/Cotest (21-29) 2005 CERVICAL CANCER SCREENING 2014 HPV/Cotest (30-65) 2014 PAP SMEAR 2014 BREAST CANCER SCREENING 2024 INFLUENZA VACCINE (#1) 2025 HPV VACCINES (No Doses Required) Completed
--- OUTSIDE RECORDS SUMMARY | 2025-08-04 02:15 | XMS_ITS | Encounter Summary ---
Author Organization [facility] Address [address] [place] [address] Care Team Providers Care Admission Nurse Name Role Phone Rhea Patiño Primary Care Provider [phone] Encounter Details Date Type Department Care Team (Late st Contact Info) Description 03/16/2020 Therapy Plan [facility] One Day Services [address] [place] [address] Kiko Rubio MD [address] [address] Social History Tobacco Use Types [...] Diagnosis Osteomyelitis, unspecified site, unspecified type (CMS/HCC [facility])- Primary documented in this encounter Care Teams Admission Nurse Relationship Specialty Start [place] [address] [place] [address] PCP - General PHYSICIAN PARTS COUNTERPERSON 02/19/20 documented as of this encounter
--- OUTSIDE RECORDS SUMMARY | 2025-08-04 02:15 | XMS_ITS | Encounter Summary ---
Author Organization [facility] Address [address] [place] [address] Care Team Providers Care Shearing Shed Worker Name Role Phone Rhea Patiño Primary Care Provider [phone] Encounter Details Date Type Department Care Team (Late st Contact Info) Description 04/12/2020 Therapy Plan [facility] [address] [place], [place] [id number] Social History Tobacco Use Types Packs/Day Years [...] on filedocumented in this encounter Care Teams Shearing Shed Worker Relationship Specialty [place] [address] [place] [address] PCP - General PHYSICIAN RESERVATIONS SALES SUPERVISOR 02/19/20 documented as of this encounter
--- OUTSIDE RECORDS SUMMARY | 2025-08-04 02:15 | XMS_ITS | Clinical Summary ---
Author Organization [facility] Address [address] [place] [id number] Care Team Providers Care Tool Lathe Operator Name Role Phone Rhea Patiño Primary Care Provider + [phone] Allergies Active Allergy Reactions Criticality Noted Date [...] Screening wi th HPV 04/09/2016 PHQ-2 (Physician [place]) 08/27/2024 COVID-19 Vaccine (3 - 2024-2 6 [...] (06/10/2025) Anatomical Region Laterality Modality Other 06/10/2025 [facility] Scanned SCANNING Final Resu lt * ULTRASOUND GENERIC (SCAN ORDER) (05/05/2025) Anatomical Region Laterality Modality Other 05/05/2025 [facility] Scanned SCANNING Final Resu lt * PAP SMEAR (04/09/2013 12:00 AM CDT) 04/09/2013 us Documents Scanned SCANNING Final Result [facility] from Last 3 Months or Most Recently Relevant to Health Maintenance Insurance Advance Directives * Full Code (Latest Code Status on File) Date Activated Date Inactivated Comments 03/11/2020 12:01 AM 03/15/2020 8:19 PM Care Teams Tool Lathe Operator Relationship Specialty Start [place] [address] [place] [address] PCP - General PHYSICIAN POWER SEWING MACHINE OPERATOR 02/19/20
[2025-08-04] MEDS: LACTATED RINGERS 1,000 ML 30 ML IV CONT ×2 (06:50→09:21)
--- NOTE | 2025-08-04 06:58 | WPDANESEPPF ---
Anes - Initial Pre Proc Eval Procedure: Operation Date: 08/04/25 07:30 Proposed Procedures p Total Abdominal Hysterectomy with Bilateral Salpingectomy - Tito Manning MD Date/Time: 08/04/25 06:58 Surgeon: Tito Manning MD Pre Op Diagnosis: uterine fibroids Patient Data Age: 40 Gender: F Height: 1.68 m Weight: 100.4 kg Allergies Allergy/AdvReac Type Severity Reaction Status Date / Time No Known Allergies Allergy Unknown Verified 08/04/25 06:20 Home Medications ?Medication ?Instructions ?Recorded ?Confirmed ?Type No Home Medications 07/02/25 07/31/25 History Patient hx anesthesia problems: none Family hx anesthesia problems: none Results Review: All pre-operative results and documents have been reviewed as part of the pre-operative evaluation. [facility] Surgical History Surgical History No pertinent past surgical history Family History Family History Father Hypertension Mother Hypertension Social History Social History Smoking status: Current some day smoker Tobacco type: cigarettes Additional smoking assessment comments: 4-5 CIGS PER WEEK-20 Alcohol intake: current Drinks per week: 8 Substance use: never Substance use type: does not use Lack of Transportation: No Lack of Food: Never True Current Housing: I Have Housing Concerned About Future Housing: Decline to Answer Difficulty Paying Gas/Electric Bills: Decline to Answer Difficulty Paying for Meds: Decline to Answer Currently Unemployed: Decline to Answer Education: Decline to Answer Difficulty w/ Childcare or Family Care: Decline to Answer Living arrangements: with family Occupation/Education: occupation Gender identity (if verbalized by the patient): Female Anes - Eval Final PreProcedure Day of Procedure 08/04/25 06:58 Patient weight: obese Heart: regular rate and rhythm Lungs: clear to auscultation Airway: Mallampati scale class II Neurological: alert and oriented Last oral intake: >/= 8 hours ASA classification: II Emergent: no Anesthetic plan: proceed Anesthesia type and monitoring: general ETT and standard monitoring Results Review: All pre-operative results and documents have been reviewed as part of the pre-operative evaluation. Informed Consent: The patient's anesthetic plan and its attendant risks and benefits were discussed with the patient/family/POA. Questions were solicited and answers provided to the satisfaction of the patient/family/POA.
[2025-08-04] MEDS: KETOROLAC 15 MG/ML VIAL (*BKC) IV PUSH (07:05)
[2025-08-04] MEDS: ACETAMINOPHEN 500 MG TABLET 1000 MG PO ×4 (07:05→23:36)
--- NOTE | 2025-08-04 07:16 | WPDHPUPDATE1 ---
History and Physical Update Update Date/Time: 08/04/25 07:16 History and Physical has been reviewed, including an updated exam of the patient. There are NO changes in the patient's condition. Risks, benefits, and alternatives have been discussed and questions answered. Patient agrees to proceed with procedure.
[2025-08-04 07:33] LABS: BEDSIDEPREGUCG Negative (Negative)
[2025-08-04] MEDS: ceFAZolin 2 GM in SODIUM CHLORIDE 0.9% IV 50 ML 100 ML IVPB (07:47)
--- NOTE | 2025-08-04 08:03 | S_PTH ---
PATIENT: Kate Sanchez LOC: ANHOB2 U#:[id number] AGE/SX: 40/F ROOM: 282 RE08/04/[address]: Tito Manning MD : 1985 BED: 00 DIS: 08/06/2025 SPEC #: [id number] RECD: 08/04/25 09:58 STATUS: JAMIE REQ #: [id number] TORY: 08/04/25 08:[address]: Tito Manning DEPT: [facility] Surgical RECD BY: Morena Miranda MLT, ([facility]) ENTERED: 08/04/25 09:58 SP TYPE: Surgical OTHR DR: Rhea Patiño, PA Tissues: A - Uterus Procedures: Hematoxylin and Eosin Stain Gross and Microscopic Level 5
--- NOTE | 2025-08-04 08:57 | W.PM.PROC2 ---
Procedure Note - Detailed Date of Procedure 08/04/25 Pre-op Diagnosis uterine fibroids pelvic pain Post-op Diagnosis Same Procedure Performed abdominal hysterectomy and bilateral salpingectomy Surgeon Tito Manning MD Anesthesia General Indications uterine fibroid pelvic pain Findings enlarged uterus, normal appearing fallopian tubes and ovaries bilaterally Description of Procedure PROCEDURE: After informed consent was confirmed the patient was taken to the operating room where general anesthesia was obtained without difficulty. She was prepped and draped in the normal sterile fashion in supine position. A transurethral Almeida catheter was placed.? A Pfannenstiel skin incision was then made with the scalpel and carried through to the underlying layer of fascia. The fascia was then incised in the midline and the incision was extended laterally with the Joseph scissors. The superior aspect of the fascia was then grasped with the Chilo clamps, elevated, and the underlying rectus muscles dissected off bluntly and sharply. Attention was then turned to the inferior aspect of this incision which, in a similar fashion, was grasped, tented up with the Chilo clamps, and the rectus muscles dissected off both bluntly and sharply. The rectus muscles were then in the midline. The peritoneum was identified and entered bluntly. The peritoneal incision was then extended superiorly and inferiorly with good visualization of the bladder. The above operative findings were noted. An Kapil ring retractor was placed in the wound for better visualization. The bowel was packed into the upper abdomen with moist laparotomy sponges. The right round ligament was divided and dissected anteriorly to create a bladder flap. The posterior broad ligament and the utero-ovarian ligament was identified and ligated with the Ligasure device. The dissection was carried down to the to level of the cervix. Hemostasis was confirmed. The bladder was taken down bluntly.. The right uterine artery was clamped and ligated with the Ligasure device. A similar procedure was performed on the contralateral side. Due to the size of the uterus, the uterine body and fibroid were transected from the lower uterine segment. After the uterus was transected at the lower uterine segment, the cervical stump was left. The cervical stump was grasped with a tenaculum for better retraction. We then took the bladder down further, past the level of the ectocervix. The anterior and posterior vagina was then approximated with clamps and the cervix amputated from the vagina. The cuff angles were closed with #0 vicryl sutures in a series of interrupted figure of 8 sutures. The abdomen and pelvis were copiously irrigated and all pedicles found to be hemostatic.?? The peritoneum was closed using 3-0 vicryl in a running fashion. The fascia was reapproximated with 0-vicryl in a running fashion. The subcutaneous tissue was irrigated and hemostasis achieved with electrocautery. It was reapproximated with 3-0 vicryl with interrupted suture. The skin was closed with 4-0 vicryl. A sterile dressing was applied to the wound. The patient tolerated the procedure well. Sponge, needle and instrument counts were correct x 2 and the patient was taken to recovery in stable condition. Ancef was given for antimicrobial prophylaxis. The patient had SCD's on for VTE prophylaxis during the entire procedure. Estimated Blood Loss 50 Drains No Packing No Pathology Yes (cervix, uterus, bilateral fallopian tubes ) Complications No immediate complications Condition Stable Disposition PACU [facility] Billing Surgery - Charge Forward: Surgery Billing
[2025-08-04] MEDS: fentaNYL CITRATE INJ (*CRX) 100 MCG/2 ML VIAL 25 MCG IV PUSH ×6 (09:09→09:36)
--- NOTE | 2025-08-04 10:30 | PC.NURSE ---
This patient, Kate Sanchez, was received from [PACU per bed to room 282]. Patient/family oriented to unit policies and routines
[2025-08-04] MEDS: oxyCODONE HCL (*CRX) 5 MG TAB IR 10 MG PO ×2 (10:41→16:32)
[2025-08-04] MEDS: DEXTROSE 5%/LACTATED RINGERS 1,000 ML 125 ML IV CONT (10:41)
[2025-08-04] MEDS: SIMETHICONE 80 MG TAB.CHEW PO ×2 (11:58→16:31)
[2025-08-04] MEDS: KETOROLAC 30 MG/ML VIAL (*BKC) IV PUSH ×3 (11:58→23:35)
[2025-08-04] MEDS: MORPHINE SULFATE (*CRX) 4 MG/ML INJ 2 MG IV PUSH (12:40)
--- NOTE | 2025-08-04 13:19 | PCRCNOTE ---
Smoking cessation paperwork given to patient. States she doesn't smoke.
[2025-08-04] MEDS: DOCUSATE SODIUM 100 MG CAPSULE PO (16:31)
[2025-08-04] MEDS: SENNA/DOCUSATE SODIUM TABLET 2 TAB PO (23:36)
[2025-08-05 05:10] VITALS: BP 99/62; PULSE 79; RESP 16; TEMP 36.5; O2SAT 96
[2025-08-05] MEDS: ACETAMINOPHEN 500 MG TABLET 1000 MG PO ×3 (05:19→17:05)
[2025-08-05] MEDS: IBUPROFEN 600 MG TABLET PO ×3 (05:19→17:05)
[2025-08-05 05:45] LABS: Hematocrit 38.3 % (37.0-47.0); Hemoglobin 12.5 g/dL (12.0-15.0); Immature Granulocyte Percent A 0.5 % (0-0.5); Lymphocytes Absolute Auto 1.28 K/mm3 (0.9-3.2); Mean Corpuscular HGB Conc 32.6 g/dl (32-36); Mean Corpuscular Hemoglobin 30.1 pg (26-34); Mean Corpuscular Volume 92.3 fl (80-100); Nucleated Red Blood Cells Absolute Auto 0.000 K/mm3 (0.0-0.012); Nucleated Red Blood Cells Perc 0.0 % (0.0-0.2); Platelet Count Result 205 k/mm3 (150-375); Red Blood Count 4.15 M/mm3 (4.2-5.4); White Blood Count 11.1 K/mm3 (4.5-10.0)
[2025-08-05 05:56] LABS: Anion Gap 4 mmol/L (4-12); Blood Urea Nitrogen 14 mg/dL (7-17); Calcium 8.7 mg/dL (8.4-10.2); Carbon Dioxide 25 mmol/L (22-30); Chloride 103 mmol/L (98-107); Estimated CRCL calculation 58 ml/min; Estimated Glomerular Filt Rate 42; Glucose 116 mg/dL (65-110); Potassium 3.8 mmol/L (3.4-5.0); Sodium 132 mmol/L (137-145)
[2025-08-05 07:30] VITALS: BP 97/51; PULSE 75; RESP 18; TEMP 36.8; O2SAT 95
[2025-08-05] MEDS: DOCUSATE SODIUM 100 MG CAPSULE PO ×2 (08:25→17:05)
[2025-08-05] MEDS: SIMETHICONE 80 MG TAB.CHEW PO ×3 (08:26→17:05)
[2025-08-05] MEDS: metroNIDAZOLE 500 MG/ISO 100ML 500 MG/100 ML BAG 100 MG IVPB (10:07)
[2025-08-05] MEDS: oxyCODONE HCL (*CRX) 5 MG TAB IR PO ×3 (11:05→19:31)
--- NOTE | 2025-08-05 16:10 | P.PNOB_ITS ---
PHLEBOTOMY TECHNOLOGIST - A/P Postoperative Procedures: Procedures Operation Date: 08/04/25 07:30 Actual Procedure Side Surgeon p Total Abdominal Hysterectomy with Bilateral Salpingectomy Bilateral Tito Manning MD Postoperative day: 1 Postoperative status: doing well Postoperative plan: routine post-op care, ambulate and advance diet Time Spent With Patient Time: Total time spent is greater than 50% in coordination of care (as documented) at patient's floor/unit and/or counseling patient: Time with patient: less than 15 minutes PHLEBOTOMY TECHNOLOGIST- PN:Subj Post-Op Subjective Date/time seen: 08/05/25 16:10 Interval history: Patient doing well this AM. She states her pain is well controlled. She denies N/V. She is tolerating PO. She is ambulating. Her catheter is removed but she has not yet voided spontaneously. She reports minimal amount of vaginal bleeding. She denies any fevers or chills. Subjective: patient has no complaints, pain is well controlled and patient is tolerating oral intake Review of Systems 2 Constitutional: Constitutional: Denies fever(s) Cardiovascular: Cardiovascular: Denies chest pain, Denies lightheadedness, Denies palpitations and Denies dyspnea Respiratory: Respiratory: Denies cough and Denies dyspnea Gastrointestinal: Gastrointestinal: Reports abdominal pain, Denies nausea and Denies vomiting Genitourinary: Genitourinary: Denies dysuria Endocrine: Endocrine: Denies palpitations Exam 2 Const: General: comfortable and no acute distress O rientation/consciousness: oriented to person, oriented to place and oriented to time Resp: Effort & Inspection: normal respiratory effort Auscultation: clear to auscultation bilaterally Cardio: Rate: regular rate Rhythm: regular rhythm GI: Inspection: non-distended GI Palp: Yes Soft to palpation, Yes Tenderness to palpation present (GI) (mild tenderness to deep palpation) and No Guarding due to palpation present (GI) Auscultation: normal bowel sounds O ther: Incisions C/D/I. no erythema or induration Urinary Catheter: Urinary Catheter: patent and draining and urine clear Neuro: General: oriented to person, oriented to place and oriented to time Extrem: General: normal to inspection and no edema Psych: Mental Status: mental status grossly normal Affect: normal affect PHLEBOTOMY TECHNOLOGIST - PN: Obj Data Vital Signs Vital Signs: Vital Signs - 24 hr 08/04/25 16:40 08/04/25 20:10 08/04/25 23:40 Temperature 97.8 F 97.9 F 98.1 F Pulse Rate 78 70 63 Respiratory Rate 14 15 16 Blood Pressure 119/65 105/65 106/58 L Pulse Oximetry 95 96 97 Oxygen Delivery 08/05/25 05:10 08/05/25 07:30 08/05/25 08:20 Temperature 97.7 F 98.3 F Pulse Rate 79 75 Respiratory Rate 16 18 Blood Pressure 99/62 L 97/51 L Pulse Oximetry 96 95 Oxygen Delivery Room Air Intake/Output Intake/Output: Intake & Output 08/02/25 08/03/25 08/04/25 08/05/25 23:59 23:59 23:59 23:59 Intake Total 2476 100 Output Total 1495 800 Balance 981 -700 Meds/Results Medications: Active Medications Generic Name Dose Route Start Last Admin Trade Name Freq PRN Reason Stop Dose Admin Acetaminophen 1,000 mg 08/04/25 12:00 08/05/25 11:05 Acetaminophen 500 Mg Tablet PO 1,000 mg Q6HR OLVIN Administration Docusate Sodium 100 mg 08/04/25 17:00 08/05/25 08:25 Docusate Sodium 100 Mg Capsule PO 100 mg BID OLVIN Administration Ibuprofen 600 mg 08/05/25 06:00 08/05/25 11:05 Ibuprofen 600 Mg Tablet PO 600 mg Q6HR OLVIN Administration Naloxone HCl 0.1 mg 08/04/25 10:23 Naloxone Hcl 0.4 Mg/Ml Vial IV PUSH Q2M PRN Respiratory rate less than 10 Ondansetron HCl 4 mg 08/04/25 10:23 Ondansetron Inj 4 Mg/2 Ml Vial IV PUSH Q6H PRN Nausea Oxycodone HCl 5 mg 08/04/25 10:23 08/05/25 15:05 Oxycodone Hcl (*Crx) 5 Mg Tab Ir PO 5 mg Q4H PRN Administration Pain Rated 4-6 Oxycodone HCl 10 mg 08/04/25 10:23 08/04/25 16:32 Oxycodone Hcl (*Crx) 5 Mg Tab Ir PO 10 mg Q6H PRN Administration Pain Rated 7-10 Senna/Docusate Sodium 2 tab 08/04/25 21:00 08/04/25 23:36 Senna/Docusate Sodium Tablet PO 2 tab HS OLVIN Administration Simethicone 80 mg 08/04/25 12:00 08/05/25 11:04 Simethicone 80 Mg Tab.Chew PO 80 mg TIDWM OLVIN Administration Labs 08/05/25 05:07 08/05/25 05:07 Labs: Laboratory Results - last 24 hr 08/05/25 05:07 WBC 11.1 H RBC 4.15 L Hgb 12.5 Hct 38.3 MCV 92.3 MCH 30.1 MCHC 32.6 RDW 13.0 Plt Count 205 MPV 10.5 H Immature Gran % (Auto) 0.5 Neut % (Auto) 79.9 H Lymph % (Auto) 11.5 L [place] % (Auto) 7.5 Eos % (Auto) 0.4 Baso % (Auto) 0.2 Lymph # (Auto) 1.28 [place] # (Auto) 0.8 H Eos # (Auto) 0.0 Baso # (Auto) 0.0 Abs Immat Gran (auto) 0.05 H Absolute Neuts (auto) 8.9 H Absolute Nucleated RBC 0.000 Nucleated RBC % 0.0 Sodium 132 L Potassium 3.8 Chloride 103 Carbon Dioxide 25 Anion Gap 4 BUN 14 Creatinine 1.37 H Estim Creat Clear Calc 58 Estimated GFR 42 L Glucose 116 H Calcium 8.7
[2025-08-05 20:00] VITALS: BP 113/67; PULSE 77; RESP 20; TEMP 37.2; O2SAT 96
[2025-08-05] MEDS: SENNA/DOCUSATE SODIUM TABLET 2 TAB PO (22:01)
[2025-08-06] MEDS: IBUPROFEN 600 MG TABLET PO ×2 (01:29→07:31)
[2025-08-06] MEDS: ACETAMINOPHEN 500 MG TABLET 1000 MG PO ×2 (01:29→07:31)
[2025-08-06 05:00] VITALS: BP 117/72; PULSE 91; RESP 17; TEMP 36.8; O2SAT 98
[2025-08-06] MEDS: DOCUSATE SODIUM 100 MG CAPSULE PO (07:31)
[2025-08-06] MEDS: SIMETHICONE 80 MG TAB.CHEW PO (07:31)
[2025-08-06 07:45] VITALS: BP 114/70; PULSE 80; RESP 16; TEMP 36.9; O2SAT 95
--- NOTE | 2025-08-06 08:32 | P.DS_ITS ---
DS: Admitting Diagnosis Discharge Date 08/06/25 Admitting Diagnosis uterine fibroid pelvic pain DS: Discharge Diagnosis Discharge Diagnosis (1) History of hysterectomy: Code(s): Z90.710 - Acquired absence of both cervix and uterus Status: Acute DS: Summary Hospital Course Hospital Course: 40-year-old female who who presented for total abdominal hysterectomy with bilateral salpingectomy for management of uterine fibroid and pelvic pain. Patient underwent an uncomplicated procedure. Her postoperative course was uncomplicated. She was discharged home on postop day 2 Status at Discharge Overall status at discharge: patient is progressing back to baseline Time Spent with Patient Time attestation: Total time spent providing and/or coordinating discharge services: Time spent: Less than 30 minutes Exam Const: General: comfortable and no acute distress Limitations: no limitations Resp: Effort & Inspection: normal respiratory effort Auscultation: clear to auscultation bilaterally Cardio: Rate: regular rate Rhythm: regular rhythm GI: Inspection: non-distended and incision GI Palp: Yes Soft to palpation, Yes Tenderness to palpation present (GI) (milder tenderness to deep palpation) and No Guarding due to palpation present (GI) Auscultation: normal bowel sounds Other: incisions C/D/I covered with dermabond Urinary Catheter: Urinary Catheter: urine clear Skin: General skin exam: normal color Extrem: General: normal to inspection Psych: Mental Status: mental status grossly normal Affect: normal affect DS: Data Data Completed and Pending Completed studies during hospitalization: Pending at discharge 08/04/25 08:03 Surgical [PTH] Routine Discharge Plan Discharge Discharging Clinician: Tito Manning Patient Disposition: Home Activity: as tolerated and pelvic rest Diet: regular Patient Instructions: How to Stop Smoking (DC), Hysterectomy (DC) Patient Language: Belarusian Follow-up/Referrals: Tito Manning MD [Physician, KENNEL MANAGER] - 2 Weeks Discharge Medications: New oxycodone-acetaminophen 5-325 mg tablet 1 tablet PO Q6H PRN (Reason: pain) Qty: 28 0RF ibuprofen 600 mg tablet 600 mg PO Q6H PRN (Reason: pain) Qty: 30 0RF No Action No Home Medications Date of admission: 08/04/25 11:10 Primary Care Provider: HaroonRhea Admitting Provider: Tito Manning Attending physician on admission: Tito Manning Condition: Stable
== END 2025-08-06 11:16 | disposition home or self-care (01) | DRG 743 ==
LOC: ANHOB2 12:56
PROVIDERS: Admitting Provider Student in an Organized Health Care Education/Training Program; PCP Physician Assistant; Visit Provider Student in an Organized Health Care Education/Training Program
PROC: 0UT94ZZ Resection of Uterus, Percutaneous Endoscopic Approach (ICD-10-PCS; principal; 2025-08-04 07:30)
DX: D25.9 Leiomyoma of uterus, unspecified (principal)
CPT/HCPCS: 36415; 80048; 85025; 88307; J0690; A9270; J1100; J1596; J1836; J1885; J2003; J2250; J2270; J2405; J2704; J3010; J7120; J7121

== ENCOUNTER 2025-08-10 11:41 | Inpatient (IN) | payer BC, SELFPAY ==
[2025-08-10] VITALS (8 sets, daily range): BP systolic 92–106; BP diastolic 53–72; PULSE 95–134; RESP 12–22; TEMP 36.7–39.4; O2SAT 93–98; BMI 34.1
--- NOTE | ~2025-08-10 | CT_ITS ---
EXAMINATION: CT abdomen pelvis w con DATE: 08/10/2025 13:00 INDICATION: Fever. Recent hysterectomy. TECHNIQUE: Computed tomography (CT) of the abdomen and pelvis was performed with 100 mL Omnipaque-350 intravenous contrast. Automated exposure control and iterative reconstruction technique were employed. The dose-length product was 827.30 mGy-cm. COMPARISON: None FINDINGS: Discoid atelectasis in bilateral lower lobes. Heart size is normal. No pericardial or pleural effusion. Liver, gallbladder, spleen, pancreas, left kidney and bilateral adrenal glands are normal. The uterus is not identified and there is a minimal amount of free fluid and gas at the uterine fossa consistent with reported history of recent hysterectomy. There is a mildly delayed right nephrogram along with mild right hydroureteronephrosis which extends caudally to the deep right hemipelvis near the right ovary and residual vaginal cuff with no evident distal obstructing stone. 2.6 cm left adnexal cyst. Bladder is normal. Bowels including the appendix are normal. No pathologically enlarged abdominal o r pelvic lymphadenopathy. Minimal likely postoperative stranding and gas in the subcutaneous fat along the anterior pelvic wall transverse surgical wound. Severe spondylosis at L5-S1. Otherwise mild spondylosis more cephalad lumbar and lower thoracic spine. IMPRESSION: 1. Mild right hydronephrosis extending to the region of the right ovary and vaginal cuff post recent hysterectomy without evident obstructing stone which raises concern for ligation or injury of the right ureter. 2. Minimal free intraperitoneal gas and fluid at the uterine fossa which is likely residual postoperative change. Reviewed, dictated and finalized at location A. H WIRER IMPRESSION: 1. Mild right hydronephrosis extending to the region of the right ovary and vag inal cuff post recent hysterectomy without evident obstructing stone which rais es concern for ligation or injury of the right ureter. 2. Minimal free intraperitoneal gas and fluid at the uterine fossa which is lik kaleigh residual postoperative change.
--- NOTE | ~2025-08-10 | CT_ITS ---
EXAMINATION: CT abdomen wo con DATE: 08/12/2025 11:42 INDICATION: Right hydronephrosis secondary to ureteral injury TECHNIQUE: Computed tomography (CT) of the abdomen was performed without intravenous contrast as a music therapy teacher for a planned right CT-guided percutaneous nephrostomy tube placement. There was insufficient with dilation of the calyces to allow for CT-guided nephrostomy tube placement and the planned procedure was canceled. I discussed these findings with Dr. Long. The dose-length product was 77.42 mGy-cm. COMPARISON: CT dated 08/10/2025 and retrograde pyelogram studies dated 08/11/2025 and 08/12/2025 FINDINGS: Discoid atelectasis at the posterior basilar aspect of the bilateral lower lobes. Liver, gallbladder, spleen, pancreas and bilateral adrenal glands are normal. There is small amount of contrast within the nondilated bilateral renal collecting systems and visualized portions of the proximal ureters which could represent residual excreted contrast from prior CT or potentially refluxed contrast related to the prior retrograde pyelograms. There is small amount of more dense extraluminal contrast in the retroperitoneal fat along side the proximal right ureter. Visualized portions of bowels are unremarkable. No pathologically enlarged mid to upper abdominal lymphadenopathy. IMPRESSION: 1. No residual hydronephrosis at the right kidney and the planned CT-guided percutaneous nephrostomy tube placement was deferred. 2. Small amount of extravasated retroperitoneal contrast likely related to ureteral injury and subsequent retrograde pyelogram. Reviewed, dictated and finalized at location A. RPRETATIVE DANCER IMPRESSION: 1. No residual hydronephrosis at the right kidney and the planned CT-guided per cutaneous nephrostomy tube placement was deferred. 2. Small amount of extravasated retroperitoneal contrast likely related to uret eral injury and subsequent retrograde pyelogram.
--- NOTE | ~2025-08-10 | XR_ITS ---
Examination: XR chest 2V Clinical History: cough, fever, recent surgery Comparison: None Technique: PA and Lateral Findings: Cardiomediastinal silhouette normal size and configuration. Lungs clear. No acute bony abnormality. IMPRESSION: 1. No acute cardiopulmonary findings. Reviewed, dictated and finalized at location R. ECTOR AIR CARRIER
--- NOTE | ~2025-08-10 | XR_ITS ---
EXAM/PROCEDURE: XR retrograde pyelogram RT HISTORY: CYSTO RT RETOGRADE PYELOGRAM COMPARISON: None available. TECHNIQUE: Fluoroscopic spot images provided for right-sided retrograde ureteral cannulation and contrast injection. Fluoroscopy time: 451.7 seconds Dose: 185.41 mGy IMPRESSION: Fluoroscopic assisted urologic procedure. No radiologist present for procedure. See procedure/operative notes for complete details. Reviewed, dictated and finalized at location A. M TABLE ASSOCIATE IMPRESSION: Fluoroscopic assisted urologic procedure. No radiologist present fo r procedure. See procedure/operative notes for complete details.
--- NOTE | ~2025-08-10 | XR_ITS ---
EXAMINATION: XR retrograde pyelogram RT DATE: 08/11/2025 10:19 INDICATION: Cystoscopy and retrograde pyelogram. TECHNIQUE: Single fluoroscopic images of the pelvis was obtained procedure performed by Dr. Darden. Radiologist was not present for the imaging or procedure. The amount of fluoroscopy time used during this procedure was 1.9 minutes. The dose area product was 2.28 mGym^2. COMPARISON: None. FINDINGS: Images demonstrate retrograde cannulation of the right ureter with advancement of a wire which extends posteriorly along the course of the distal to mid right ureter and beyond the cephalad margin of the field of imaging. There is a small amount of contrast, likely extraluminal projecting over the caudal sacrum and suspicious for extravasation. IMPRESSION: 1. Fluoroscopy utilized during cystoscopy and right retrograde pyelogram. Suggestion of some extraluminal extravasation of contrast in the pelvis. See procedure note for further detail. Reviewed, dictated and finalized at location A. S SUPPORT ADMINISTRATOR IMPRESSION: 1. Fluoroscopy utilized during cystoscopy and right retrograde pyelogram. Sugge stion of some extraluminal extravasation of contrast in the pelvis. See procedu re note for further detail.
[2025-08-10 12:09] LABS: Hematocrit 42.4 % (37.0-47.0); Hemoglobin 14.2 g/dL (12.0-15.0); Immature Granulocyte Percent A 1.0 % (0-0.5); Lymphocytes Absolute Auto 0.39 K/mm3 (0.9-3.2); Mean Corpuscular HGB Conc 33.5 g/dl (32-36); Mean Corpuscular Hemoglobin 29.8 pg (26-34); Mean Corpuscular Volume 88.9 fl (80-100); Nucleated Red Blood Cells Absolute Auto 0.000 K/mm3 (0.0-0.012); Nucleated Red Blood Cells Perc 0.0 % (0.0-0.2); Platelet Count Result 251 k/mm3 (150-375); Red Blood Count 4.77 M/mm3 (4.2-5.4); White Blood Count 7.8 K/mm3 (4.5-10.0)
[2025-08-10 12:24] LABS: Alanine Aminotransferase 33 U/L (6-35); Albumin Level 4.2 g/dL (3.5-5.1); Alkaline Phosphatase 86 U/L (38-126); Anion Gap 8 mmol/L (4-12); Aspartate Amino Transferase 29 U/L (14-36); Bilirubin,Total 0.9 mg/dL (0.2-1.3); Blood Urea Nitrogen 14 mg/dL (7-17); Calcium 9.7 mg/dL (8.4-10.2); Carbon Dioxide 21 mmol/L (22-30); Chloride 105 mmol/L (98-107); Estimated CRCL calculation 85 ml/min; Estimated Glomerular Filt Rate > 60; Glucose 110 mg/dL (65-110); Potassium 4.6 mmol/L (3.4-5.0); Sodium 134 mmol/L (137-145); Total Protein 7.7 g/dL (6.3-8.2)
[2025-08-10 12:30] LABS: Add Urine Microscopic? YES; Appearance Urine Cloudy (Clear); Glucose Urine UA Negative (Negative); Leukocyte Esterase Ur 2+ LEU/UL (Negative); Nitrate Urine Negative (Negative); Non Pathogenic Casts 0-2; Specific Grav Ur 1.020 (1.001-1.035)
--- NOTE | 2025-08-10 12:51 | ED_ITS ---
HPI - Wound/Laceration General Chief Complaint: Wound/Laceration Stated Complaint: hyst on sunday, fever R sided pain Time Seen by Provider: 08/10/25 12:00 Source: patient Mode of arrival: ambulatory Limitations: no limitations History of Present Illness HPI narrative: This is a 40-year-old female with recent hysterectomy who presents to the ED for fever and right flank pain. States that she had a total abdominal hysterectomy 5 days ago. She was doing well until yesterday when she began to have right flank pain. She has also had some leak which of urine with no urgency or pain. This morning, and she felt fever so she took a shower and had severe rigors prompting her to come ED. She checked her temperature at home was 101.4. Last took Tylenol at 4:00 a.m.. Has had a mild cough since the surgery but this is not changed. Related Data Allergies Allergy/AdvReac Type Severity Reaction Status Date / Time No Known Allergies Allergy Unknown Verified 08/10/25 11:42 Review of Systems 2 Review of Systems: Gen.: Denies fevers or chills Eyes: Denies eye pain or visual change ENT: Denies congestion Respiratory: Denies shortness of breath or cough CV: Denies chest pain or palpitations GI: As per HPI denies burning, urgency, frequency or hematuria Musculoskeletal: Denies back pain or muscle pain Neuro: Denies numbness, tingling, weakness or focal weakness Skin: Denies rash Except as documented, all other systems reviewed and negative FOR[facility]LY [facility] Surgical History Surgical History No pertinent past surgical history Family History Family History Father Hypertension Mother Hypertension Social History Social History Smoking status: Never smoker Tobacco type: cigarettes Additional smoking assessment comments: 4-5 CIGS PER WEEK-20 Alcohol intake: current Drinks per week: 8 Substance use: never Substance use type: does not use Lack of Transportation: No Lack of Food: Never True Current Housing: I Have Housing Concerned About Future Housing: Decline to Answer Difficulty Paying Gas/Electric Bills: Decline to Answer Difficulty Paying for Meds: Decline to Answer Currently Unemployed: Decline to Answer Education: Decline to Answer Difficulty w/ Childcare or Family Care: Decline to Answer Living arrangements: with family Occupation/Education: occupation Gender identity (if verbalized by the patient): Female Exam 2 Narrative: APPEARANCE: No acute distress, mildly ill appearing, resting in bed EYES: EOMI HEENT: Normocephalic, atraumatic, OMM RESPIRATORY: No respiratory distress Clear to auscultation bilaterally with no rhonchi wheezing or rales. CARDIOVASCULAR: Regular rate and rhythm without murmurs rubs or gallops. ABDOMINAL: Soft, CVA tenderness on the right, mild tenderness over the low transverse incision, incision is clean/dry/intact. MUSCULOSKELETAl: Moves all extremities. No clubbing, cyanosis or edema. NEURO: Awake and alert. Following commands, speech normal, no focal deficits SKIN:: Warm, dry. No rashes lesions or abrasions PSYCHIATRIC: Normal affect/mood, Course Vital Signs Vital signs: Vital Signs Temperature 100.0 F H 08/10/25 11:43 Pulse Rate 134 H 08/10/25 11:43 Respiratory Rate 22 H 08/10/25 11:43 Blood Pressure 98/72 L 08/10/25 11:43 Pulse Oximetry 97 08/10/25 11:43 Oxygen Delivery Room Air 08/10/25 11:43 Temperature 100.0 F H 08/10/25 11:43 Pulse Rate 101 H 08/10/25 14:09 Respiratory Rate 22 H 08/10/25 14:09 Blood Pressure 103/62 08/10/25 14:09 Pulse Oximetry 93 08/10/25 14:09 Oxygen Delivery Room Air 08/10/25 11:43 [facility] Narrative Medical decision making narrative: 40-year-old female Presenting for right flank pain and fever. On initial evaluation patient was mildly ill-appearing. Her temperature was 100? with a soft blood pressure of 98/72 and heart rate of 134. Differentials include but are not limited to: Postop infection, pneumonia, UTI, pyelonephritis, abscess Notable exam findings: CVA tenderness on the right, surgical incision clean/dry/intact I personally reviewed the patient's lab result. Notable lab findings: Normal white count but with neutrophil predominance at 92%. Mild hyponatremia at 1:34 a.m.. Lactic acidosis at 2.8. UA could be consistent with a UTI but is more likely consistent with a contaminated specimen. I personally reviewed the patient's images and interpret as follows: Chest x- ray: Normal cardiac silhouette, no consolidations, no pleural effusions, no pulmonary vascular congestion CT abdomen/pelvis: Hydronephrosis on the right without any obvious obstruction which could be concerning for an intra operative ureteral injury Given the recent surgery in hydronephrosis, this is potentially concerning for an intraoperative ureteral injury. I did discuss the case with Dr. Duran urology, who will see the patient as consult and plan for cystoscopy tomorrow. I discussed case with Dr. Kerri SWIFT, who will admit the patient. Patient was started on Zosyn for potential infection. Patient was agreeable to this plan. Differential Diagnosis Differential Diagnosis: Postop infection, pneumonia, UTI, pyelonephritis, abscess Lab Data MDM Lab Attestation statement: I personally reviewed the patient's lab results. 08/10/25 12:02 08/10/25 12:02 Labs: Lab Results 08/10/25 08/10/25 Range/Units 12:02 12:21 WBC 7.8 (4.5-10.0) K/mm3 RBC 4.77 (4.2-5.4) M/mm3 Hgb 14.2 (12.0-15.0) g/dL Hct 42.4 (37.0-47.0) % MCV 88.9 (80-100) fl MCH 29.8 (26-34) pg MCHC 33.5 (32-36) g/dl RDW 12.5 (11.5-14.5) % Plt Count 251 (150-375) k/mm3 MPV 10.0 (7.4-10.4) fl Immature Gran % (Auto) 1.0 H (0-0.5) % Neut % (Auto) 92.7 H (45.5-73.1) % Lymph % (Auto) 5.0 L (18.3-44.2) % [place] % (Auto) 0.5 L (2.6-8.5) % Eos % (Auto) 0.5 (0-4.4) % Baso % (Auto) 0.3 (0.2-1.2) % Lymph # (Auto) 0.39 L (0.9-3.2) K/mm3 [place] # (Auto) 0.0 L (0.1-0.6) K/mm3 Eos # (Auto) 0.0 (0-0.3) K/mm3 Baso # (Auto) 0.0 (0.0-0.1) K/mm3 Abs Immat Gran (auto) 0.08 H (0.00-0.031) K/mm3 Absolute Neuts (auto) 7.2 H (1.3-6.7) K/mm3 Absolute Nucleated RBC 0.000 (0.0-0.012) K/mm3 Nucleated RBC % 0.0 (0.0-0.2) % Sodium 134 L (137-145) mmol/L Potassium 4.6 (3.4-5.0) mmol/L Chloride 105 (98-107) mmol/L Carbon Dioxide 21 L (22-30) mmol/L Anion Gap 8 (4-12) mmol/L BUN 14 (7-17) mg/dL Creatinine 0.89 (0.7-1.0) mg/dL Estim Creat Clear Calc 85 ml/min Estimated GFR > 60 (59 - ) Glucose 110 (65-110) mg/dL Lactic Acid 2.8 H (0.7-2.0) mmol/L Calcium 9.7 (8.4-10.2) mg/dL Total Bilirubin 0.9 (0.2-1.3) mg/dL AST 29 (14-36) U/L ALT 33 (6-35) U/L Alkaline Phosphatase 86 (38-126) U/L Total Protein 7.7 (6.3-8.2) g/dL Albumin 4.2 (3.5-5.1) g/dL Urine Color Yellow (Yellow) Urine Appearance Cloudy H (Clear) Urine pH 6.0 (5.0-9.0) Ur Specific [place] 1.020 (1.001-1.035) Urine Protein Trace (Negative) mg/dL Urine Glucose (UA) Negative (Negative) mg/dL Urine Ketones Negative (Negative) mg/dL Ur Blood (Man) 2+ H (Negative) Urine Nitrate Negative (Negative) Urine Bilirubin Negative (Negative) Urine Urobilinogen 0.2 (<2.0) mg/dL Leukocyte Esterase Rfl 2+ H (Negative) SANTANA/UL Urine RBC 6-10 H (0-2) /hpf Urine WBC 6-10 H (0-3) /hpf Ur Squamous Epith Cells Many H (Few) /hpf Urine Bacteria 2+ H /hpf Urine Casts 0-2 Influenza A (RT-PCR) Negative (Negative) Influenza B (RT-PCR) Negative (Negative) RSV (RT-PCR) Negative (Negative) SARS-CoV-2 RNA (RT-PCR) Negative (Negative) Imaging Data Radiologist's impression: ITS Impressions Chest X-Ray 08/10/25 12:30 IMPRESSION: 1. No acute cardiopulmonary findings. Abdomen/Pelvis CT 08/10/25 13:03 IMPRESSION: 1. Mild right hydronephrosis extending to the region of the right ovary and vaginal cuff post recent hysterectomy without evident obstructing stone which raises concern for ligation or injury of the right ureter. 2. Minimal free intraperitoneal gas and fluid at the uterine fossa which is likely residual postoperative change. Discharge Plan Discharge Clinical Impression: Hydronephrosis Qualifiers: Hydronephrosis type: unspecified Qualified Code(s): N13.30 - Unspecified hydronephrosis Sepsis Qualifiers: Sepsis type: sepsis due to unspecified organism Sepsis acute organ dysfunction status: without acute organ dysfunction Qualified Code(s): A41.9 - Sepsis, unspecified organism Patient Disposition: Still a Patient Condition: Stable
[2025-08-10] MEDS: SODIUM CHLORIDE 0.9% IV 1,000 ML 999 ML IV CONT (13:29)
[2025-08-10] MEDS: KETOROLAC 30 MG/ML VIAL (*BKC) IV PUSH (13:29)
[2025-08-10] MEDS: ONDANSETRON INJ 4 MG/2 ML VIAL IV PUSH (13:29)
[2025-08-10 13:55] LABS: Influenza A QL RT-PCR Negative (Negative); Influenza B QL RT-PCR Negative (Negative); RSV RNA, RT-PCR Negative (Negative); SARS-CoV-2 RNA PCR Negative (Negative)
[2025-08-10] MEDS: PIPERACILLIN/TAZOBACTAM SOD 4.5 GM in SODIUM CHLORIDE 0.9% IV 100 ML 200 ML IVPB (14:08)
--- NOTE | 2025-08-10 14:17 | WPCEDHO ---
ED Hand Off Checklist All vitals saved:Y IV Site documented:Y All med administrations documented:Y Triage Note Triage Note Pt to ED via POV with c/o fever, 08/10/25 11:43 chills, worsening pain since yesterday, pt reports hysterotomy on Sunday at this facility. Allergies No Known Allergies Allergy (Unknown, Verified 08/10/25 11:42) Family History (Last Reviewed 08/10/25 @ 12:53 by Davion Ernst DO) Father Hypertension Mother Hypertension Administered/Completed Medications Discontinued Medications Sodium Chloride (Normal Saline Iv) 1,000 mls @ 999 mls/hr IV CONT .Q1H1M STA Stop: 08/10/25 13:49 Last Admin: 08/10/25 13:29 Dose: 999 mls/hr Documented By: MALLORY Piperacillin Sod/Tazobactam (Sod 4.5 gm/ Sodium Chloride) 100 mls @ 200 mls/hr IVPB ONCE STA Stop: 08/10/25 14:04 Last Admin: 08/10/25 14:08 Dose: 200 mls/hr Documented By: MALLORY Ketorolac Tromethamine (Ketorolac 30 Mg/Ml Vial (*Bk)) 30 mg IV PUSH ONCE STA Stop: 08/10/25 12:50 Last Admin: 08/10/25 13:29 Dose: 30 mg Documented By: MALLORY Ondansetron HCl (Ondansetron Inj 4 Mg/2 Ml Vial) 4 mg IV PUSH ONCE STA Stop: 08/10/25 12:56 Last Admin: 08/10/25 13:29 Dose: 4 mg Documented By: MALLORY Interventions/Assessments IV / Saline Lock, Insert Start: 08/10/25 12:29 Freq: Status: Active Protocol: Document 08/10/25 12:29 MALLORY (Rec: 08/10/25 12:30 MALLORY [id number]) IV Assessment Peripheral Access Right Antecubital IV Catheter Access Initiated IV Insertion Date 08/10/25 IV Insertion Time 12:20 Catheter Gauge 18 IV Insertion 1 Attempts IV Site Assessment WNL IV Care and WNL,Access Locked Maintenance Last Vital Signs Temperature 100.0 F H 08/10/25 11:43 Pulse Rate 101 H 08/10/25 14:09 Respiratory Rate 22 H 08/10/25 14:09 Pulse Oximetry 93 08/10/25 14:09 Blood Pressure 103/62 08/10/25 14:09 Blood Pressure Mean 75 08/10/25 14:09 Blood Pressure Position Supine 08/10/25 13:33 Oxygen Delivery Room Air 08/10/25 11:43 Weight 95.9 kg 08/10/25 11:43 Last Result - Abnormals Only Immature Gran % (Auto) 1.0 % (0-0.5) H 08/10/25 12:02 Neut % (Auto) 92.7 % (45.5-73.1) H 08/10/25 12:02 Lymph % (Auto) 5.0 % (18.3-44.2) L 08/10/25 12:02 [place] % (Auto) 0.5 % (2.6-8.5) L 08/10/25 12:02 Lymph # (Auto) 0.39 K/mm3 (0.9-3.2) L 08/10/25 12:02 [place] # (Auto) 0.0 K/mm3 (0.1-0.6) L 08/10/25 12:02 Abs Immat Gran (auto) 0.08 K/mm3 (0.00-0.031) H 08/10/25 12:02 Absolute Neuts (auto) 7.2 K/mm3 (1.3-6.7) H 08/10/25 12:02 Sodium 134 mmol/L (137-145) L 08/10/25 12:02 Carbon Dioxide 21 mmol/L (22-30) L 08/10/25 12:02 Lactic Acid 2.8 mmol/L (0.7-2.0) H 08/10/25 12:02 Urine Appearance Cloudy (Clear) H 08/10/25 12:21 Ur Blood (Man) 2+ (Negative) H 08/10/25 12:21 Leukocyte Esterase Rfl 2+ SANTANA/UL (Negative) H 08/10/25 12:21 Urine RBC 6-10 /hpf (0-2) H 08/10/25 12:21 Urine WBC 6-10 /hpf (0-3) H 08/10/25 12:21 Ur Squamous Epith Cells Many /hpf (Few) H 08/10/25 12:21 Urine Bacteria 2+ /hpf H 08/10/25 12:21 Most Recent Suicide Severity Rating Suicide Severity Rating NO RISK INDICATED 12/15/25 11:43
--- NOTE | 2025-08-10 15:17 | P.CONUR_ITS ---
<Statement entered by Don Duran MD - 08/11/25 04:37> This documentation has been reviewed and approved. >50% of MDM was done by meself. Patient was seen and evaluated Assessment and Plan Assessment and plan (1) Hydronephrosis: Qualifiers: Hydronephrosis type: unspecified Qualified Code(s): N13.30 - Unspecified hydronephrosis <ROBYN Craft - Last Filed: 08/10/25 15:36> Code(s): N13.30 - Unspecified hydronephrosis <ROBYN Craft - Last Filed: 08/10/25 15:36> Status: Acute <ROBYN Craft - Last Filed: 08/10/25 15:36> Assessment and Plan: - New right sided hydroureteronephrosis after recent hysterectomy concerning for ureteral injury - Plan for cysto, Right RGP, Right ureteral stent placement tomorrow - Surgical procedure and associated risks and benefits reviewed with pt; voices her understanding and agrees with plan - Creatinine currently stable <ROBYN Craft - Last Filed: 08/10/25 15:36> (2) Abnormal urinalysis: Code(s): R82.90 - Unspecified abnormal findings in urine <ROBYN Carft - Last Filed: 08/10/25 15:36> Status: Acute <ROBYN Craft - Last Filed: 08/10/25 15:36> Assessment and Plan: - Urinalysis with RBCs and WBCs - This may reflect UTI vs inflammatory changes in the setting of recent pelvic surgery - Recommend urine culture to assess for infection in the setting of planned cystoscopic surgery <ROBYN Craft - Last Filed: 08/10/25 15:36> Urology Consult Note HPI Date Seen: 08/10/25 <ROBYN Craft - Last Filed: 08/10/25 15:36> 08/10/25 <Don Duran MD - Last Filed: 08/10/25 16:32> Requesting Physician: Tito Manning MD <ROBYN Craft - Last Filed: 08/10/25 15:36> Primary Care Provider: Tito Manning MD <ROBYN Craft - Last Filed: 08/10/25 15:36> Consult Narrative Narrative: Pt is a 40 year old F with uterine fibroids s/p SAM (08/04/2025) who presented to the ED with new onset flank pain, nausea and vomiting found to have Right sided hydroureteronephrosis concerning for ureteral injury for whom urology in consulted for ureteral injury. Pt states that she was feeling well after her surgery until this morning when she began to note above symptoms. No gross hematuria, no dysuria. Does have some new onset VIVEK after surgery. <ROBYN Craft - Last Filed: 08/10/25 15:36> Review of Systems 2 Constitutional: Constitutional: Reports chills <ROBYN Craft - Last Filed: 08/10/25 15:36> ENT: Reports Normal hearing present <ROBYN Craft - Last Filed: 08/10/25 15:36> Cardiovascular: Cardiovascular: Denies chest pain <ROBYN Craft - Last Filed: 08/10/25 15:36> Respiratory: Respiratory: Reports cough, Denies dyspnea and Denies dyspnea on exertion <ROBYN Craft - Last Filed: 08/10/25 15:36> Gastrointestinal: Gastrointestinal: Reports abdominal pain, Denies constipation, Denies diarrhea, Reports nausea and Reports vomiting <ROBYN Craft - Last Filed: 08/10/25 15:36> Genitourinary: Genitourinary: Denies hematuria, Denies dysuria, Reports flank pain and Reports urinary incontinence <ROBYN Craft - Last Filed: 08/10/25 15:36> Neurologic: Denies Abnormal speech present and Denies abnormal gait <ROBYN Craft - Last Filed: 08/10/25 15:36> [facility] Surgical History Surgical History: Surgical History No pertinent past surgical history <ROBYN Craft - Last Filed: 08/10/25 15:36> Family History Family History: Family History Father Hypertension Mother Hypertension <ROBYN Craft Last Filed: 08/10/25 15:36> Social History Social History: Social History Smoking status: Light tobacco smoker Tobacco type: cigarettes Second hand tobacco smoke exposure: No Additional smoking assessment comments: 4-5 CIGS PER WEEK-20 Alcohol intake: current Drinks per week: 8 Substance use: never Substance use type: does not use Lack of Transportation: No Lack of Food: Never True Current Housing: I Have Housing Concerned About Future Housing: Decline to Answer Difficulty Paying Gas/Electric Bills: Decline to Answer Difficulty Paying for Meds: Decline to Answer Currently Unemployed: Decline to Answer Education: Decline to Answer Difficulty w/ Childcare or Family Care: Decline to Answer Living arrangements: with family Occupation/Education: occupation Gender identity (if verbalized by the patient): Female Spiritual care concerns: No <ROBYN Craft Last Filed: 08/10/25 15:36> Meds Home Medications and Allergies Home medications: Home Medications ?Medication ?Instructions ?Recorded ?Confirmed ?Type ibuprofen 600 mg tablet 600 mg PO Q6H PRN pain #30 t abs 08/05/25 08/10/25 Rx oxycodone-acetaminophen 5 mg-325 1 tablet PO Q6H PRN p ain #28 tabs 08/05/25 08/10/25 Rx mg tablet <ROBYN Craft Last Filed: 08/10/25 15:36> Allergies/Adverse reactions: Allergies Allergy/AdvReac Type Severity Reaction Status Date / Time No Known Allergies Allergy Unknown Verified 08/10/25 15:16 <ROBYN Craft Last Filed: 08/10/25 15:36> Vital Signs Vital Signs - 24 hr 08/10/25 11:43 08/10/25 13:33 08/10/25 14:09 Temperature 37.8 C H Pulse Rate 134 H 95 101 H Respiratory Rate 22 H 12 22 H Blood Pressure 98/72 L 92/59 L 103/62 Pulse Oximetry 97 95 93 Oxygen Delivery Room Air <ROBYN Craft Last Filed: 08/10/25 15:36> Exam 2 Const: General: no acute distress and uncomfortable <ROBYN Craft - Last Filed: 08/10/25 15:36> Resp: Effort & Inspection: normal respiratory effort <ROBYN Craft - Last Filed: 08/10/25 15:36> Skin: General skin exam: normal color <ROBYN Craft - Last Filed: 08/10/25 15:36> Neuro: Speech: normal speech <ROBYN Craft - Last Filed: 08/10/25 15:36> Psych: Affect: normal affect <ROBYN Craft - Last Filed: 08/10/25 15:36> Results Labs CBC & Chem 7: 08/10/25 12:02 08/10/25 12:02 <ROBYN Craft - Last Filed: 08/10/25 15:36> Labs: Short CBC 08/10/25 Range/Units 12:02 WBC 7.8 (4.5-10.0) K/mm3 Hgb 14.2 (12.0-15.0) g/dL Hct 42.4 (37.0-47.0) % Plt Count 251 (150-375) k/mm3 BMP 08/10/25 12:02 Sodium 134 L Potassium 4.6 Chloride 105 Carbon Dioxide 21 L BUN 14 Creatinine 0.89 Glucose 110 Calcium 9.7 Liver Function 08/10/25 Range/Units 12:02 Total Bilirubin 0.9 (0.2-1.3) mg/dL AST 29 (14-36) U/L ALT 33 (6-35) U/L Alkaline Phosphatase 86 (38-126) U/L Albumin 4.2 (3.5-5.1) g/dL Urine 08/10/25 Range/Units 12:21 Urine Color Yellow (Yellow) Urine Appearance Cloudy H (Clear) Urine pH 6.0 (5.0-9.0) Ur Specific [place] 1.020 (1.001-1.035) Urine Protein Trace (Negative) mg/dL Urine Glucose (UA) Negative (Negative) mg/dL <ROBYN Craft Last Filed: 08/10/25 15:36> Attestation Supervising Provider Attestation Patient seen and examined. Agree with note above. Patient has right hydronephrosis. Status post hysterectomy 1 week ago. Concern is for ureteral injury. Plan is for an attempt at a right ureteral stent tomorrow. If successful will leave the stent in for several months and then removed. If unsuccessful will plan on nephrostomy tube with delayed ureteral reimplant in approximately 3 months. Plan discussed with patient. <Don Duran MD - Last Filed: 08/10/25 16:32>
--- NOTE | 2025-08-10 18:27 | PM.IMHP2 ---
H&P: HPI History of Present Illness Date/Time: 08/10/25 18:27 Chief Complaint: Right-sided flank pain Narrative: 40-year-old female who presents to the ED with complaint of acute onset right-sided flank pain, nausea, vomiting. Patient is 6 days status post abdominal hysterectomy for uterine fibroids. Patient's symptoms started acutely this morning. Also reports occult onset stress urinary incontinence. Imaging in the emergency room showed right hydronephrosis concerning for possible ureteral injury. Review of Systems Constitutional: Constitutional: Reports as per HPI Respiratory: Respiratory: Reports no additional respiratory complaints Gastrointestinal: Gastrointestinal: Reports abdominal pain, Reports nausea and Reports vomiting Genitourinary: Genitourinary: Reports as per HPI PMFSH Surgical History Surgical History No pertinent past surgical history Family History Family History Father Hypertension Mother Hypertension Social History Social History Smoking status: Light tobacco smoker Tobacco type: cigarettes Second hand tobacco smoke exposure: No Additional smoking assessment comments: 4-5 CIGS PER WEEK-20 Alcohol intake: current Drinks per week: 8 Substance use: never Substance use type: does not use Lack of Transportation: No Lack of Food: Never True Current Housing: I Have Housing Concerned About Future Housing: Decline to Answer Difficulty Paying Gas/Electric Bills: Decline to Answer Difficulty Paying for Meds: Decline to Answer Currently Unemployed: Decline to Answer Education: Decline to Answer Difficulty w/ Childcare or Family Care: Decline to Answer Living arrangements: with family Occupation/Education: occupation Gender identity (if verbalized by the patient): Female Spiritual care concerns: No Meds Home Medications and Allergies Home Medications ?Medication ?Instructions ?Recorded ?Confirmed ?Type ibuprofen 600 mg tablet 600 mg PO Q6H PRN pain #30 tabs 08/05/25 08/10/25 Rx oxycodone-acetaminophen 5 mg-325 1 tablet PO Q6H PRN pain #28 tabs 08/05/25 08/10/25 Rx mg tablet Allergies Allergy/AdvReac Type Severity Reaction Status Date / Time No Known Allergies Allergy Unknown Verified 08/10/25 15:16 Vital Signs Vital Signs - 24 hr 08/10/25 11:43 08/10/25 13:33 08/10/25 14:09 Temperature 100.0 F H Pulse Rate 134 H 95 101 H Respiratory Rate 22 H 12 22 H Blood Pressure 98/72 L 92/59 L 103/62 Pulse Oximetry 97 95 93 Oxygen Delivery Room Air 08/10/25 16:00 08/10/25 17:51 Temperature 98.8 F Pulse Rate 99 Respiratory Rate 21 H Blood Pressure 106/64 Pulse Oximetry 98 Oxygen Delivery Room Air Exam Const: General: cooperative and comfortable Resp: Effort & Inspection: normal respiratory effort and able to speak in complete sentences Cardio: Rate: regular rate GI: Inspection: incision (Pfannenstiel incision) GI Palp: Yes abdominal tenderness Results Labs Labs: Short CBC 08/10/25 Range/Units 12:02 WBC 7.8 (4.5-10.0) K/mm3 Hgb 14.2 (12.0-15.0) g/dL Hct 42.4 (37.0-47.0) % Plt Count 251 (150-375) k/mm3 BMP 08/10/25 12:02 Sodium 134 L Potassium 4.6 Chloride 105 Carbon Dioxide 21 L BUN 14 Creatinine 0.89 Glucose 110 Calcium 9.7 Liver Function 08/10/25 Range/Units 12:02 Total Bilirubin 0.9 (0.2-1.3) mg/dL AST 29 (14-36) U/L ALT 33 (6-35) U/L Alkaline Phosphatase 86 (38-126) U/L Albumin 4.2 (3.5-5.1) g/dL Urine 08/10/25 Range/Units 12:21 Urine Color Yellow (Yellow) Urine Appearance Cloudy H (Clear) Urine pH 6.0 (5.0-9.0) Ur Specific [place] 1.020 (1.001-1.035) Urine Protein Trace (Negative) mg/dL Urine Glucose (UA) Negative (Negative) mg/dL Assessment and Plan Assessment and plan (1) Hydronephrosis: Qualifiers: Hydronephrosis type: unspecified Qualified Code(s): N13.30 - Unspecified hydronephrosis Code(s): N13.30 - Unspecified hydronephrosis Status: Acute Assessment and Plan: 40-year-old female who presents to the ER with acute onset right-sided flank plain Six days postop from abdominal hysterectomy for enlarged uterus secondary to uterine fibroid Imaging in the ER showed right-sided hydronephrosis concerning for ureteral injury No leukocytosis Patient was given Zosyn for meeting SIRS criteria Pain controlled on oxycodone Urology consult id Will plan for NPO at midnight Plan for cystoscopy, Right RGP, Right ureteral stent placement tomorrow Appreciate urology consultation (2) Pelvic pain: Code(s): R10.20 - Pelvic and perineal pain unspecified side Status: Acute (3) History of hysterectomy: Code(s): Z90.710 - Acquired absence of both cervix and uterus Status: Acute
[2025-08-10] MEDS: oxyCODONE HCL (*CRX) 5 MG TAB IR PO (18:46)
[2025-08-10] MEDS: ACETAMINOPHEN 500 MG TABLET 1000 MG PO (22:42)
[2025-08-11] VITALS (17 sets, daily range): BP systolic 91–127; BP diastolic 45–81; PULSE 63–101; RESP 13–20; TEMP 36.4–37.7; O2SAT 79–98
--- NOTE | 2025-08-11 07:41 | WPDUROPN2 ---
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 Continue broad-spectrum IV antibiotics until culture results are finalized in order to guide most appropriate antibiotic therapy - Patient understands that if I am unable to place a stent in retrograde fashion that she will require placement of a nephrostomy tube as a separate procedure by Interventional Radiology - Risks, benefits, alternatives reviewed with the patient. She understands that a ureteral stent is a temporary implant and will need to be removed and/or exchanged in a timely fashion, otherwise it can cause stent encrustation, stent failure, permanent kidney damage, UTI/sepsis, loss of renal unit, and even . She is amenable to proceed to the OR. Subjective Subjective Date/Time Seen: 08/11/25 07:41 Interval history: NAEO. She has ongoing right flank discomfort. Patient understands plan for OR today for attempt at right ureteral stent placement. She voices understanding that if the ureteral stent is unable to be placed in retrograde fashion, that she will need placement of a nephrostomy tube. Review of Systems Review of Systems: Constitutional: No fevers or chills Eyes: No changes in vision HENT: No hearing loss Cardiovascular: No chest pain or palpitations Respiratory: No shortness of breath, cough, wheezing GI: Per above : Per above Heme: No easy bruising or bleeding Skin: No rash or itching MSK: No myalgias or joint pain Psych: No hallucinations Neuro: No lateralized numbness or tingling Exam Narrative: General: Alert, no acute distress Head: Normocephalic, atraumatic Eyes: Extraocular movements intact Neck: No JVD, trachea midline Respiratory: Symmetric chest rise, nonlabored breathing on room air CV: Normal rate, adequate peripheral perfusion Skin: Warm/dry Extremities: No peripheral edema, no cyanosis Neuro: No focal deficits Psych: Answers questions appropriately, appropriate mood Objective Data Vital Signs Vital Signs: Vital Signs - 24 hr 08/10/25 11:43 08/10/25 13:33 08/10/25 14:09 Temperature 37.8 C H Pulse Rate 134 H 95 101 H Respiratory Rate 22 H 12 22 H Blood Pressure 98/72 L 92/59 L 103/62 Pulse Oximetry 97 95 93 Oxygen Delivery Room Air 08/10/25 16:00 08/10/25 17:51 08/10/25 20:00 Temperature 37.1 C 36.7 C Pulse Rate 99 103 H Respiratory Rate 21 H 18 Blood Pressure 106/64 92/57 L Pulse Oximetry 98 98 Oxygen Delivery Room Air 08/10/25 20:00 08/10/25 20:35 08/10/25 22:42 Temperature 36.7 C 39.4 C H Pulse Rate 111 H 103 H Respiratory Rate 20 18 Blood Pressure 92/57 L Pulse Oximetry 95 98 Oxygen Delivery Room Air 08/10/25 23:24 08/11/25 03:35 08/11/25 03:37 Temperature 39.0 C H 37.7 C H 37.7 C H Pulse Rate 111 H 101 H 97 Respiratory Rate 20 20 18 Blood Pressure 104/53 L 127/66 125/65 Pulse Oximetry 95 97 98 Oxygen Delivery Intake/Output Intake/Output: Intake & Output 08/08/25 08/09/25 08/10/25 08/11/25 23:59 23:59 23:59 23:59 Intake Total 0 120 Balance 0 120 Meds/Results Medications: Active Medications Generic Name Dose Route Start Last Admin Trade Name Freq PRN Reason Stop Dose Admin Acetaminophen 1,000 mg 08/10/25 14:58 08/10/25 22:42 Acetaminophen 500 Mg Tablet PO 1,000 mg Q6H PRN Administration Mild Pain (1-3) or Fever Cefazolin Sodium 2 gm/ Sodium 50 mls @ 100 mls/hr 08/11/25 07:28 Chloride IVPB 08/11/25 07:57 ONCE ONE Oxycodone HCl 5 mg 08/10/25 14:57 08/10/25 18:46 Oxycodone Hcl (*Crx) 5 Mg Tab Ir PO 5 mg Q4H PRN Administration Pain Rated 7-10 Radiology Results: ITS Impressions Chest X-Ray 08/10/25 12:30 IMPRESSION: 1. No acute cardiopulmonary findings. Abdomen/Pelvis CT 08/10/25 13:03 IMPRESSION: 1. Mild right hydronephrosis extending to the region of the right ovary and vaginal cuff post recent hysterectomy without evident obstructing stone which raises concern for ligation or injury of the right ureter. 2. Minimal free intraperitoneal gas and fluid at the uterine fossa which is likely residual postoperative change. Labs Labs: Laboratory Results - last 24 hr 08/10/25 08/10/25 08/10/25 12:02 12:21 15:26 WBC 7.8 RBC 4.77 Hgb 14.2 Hct 42.4 MCV 88.9 MCH 29.8 MCHC 33.5 RDW 12.5 Plt Count 251 MPV 10.0 Immature Gran % (Auto) 1.0 H Neut % (Auto) 92.7 H Lymph % (Auto) 5.0 L [place] % (Auto) 0.5 L Eos % (Auto) 0.5 Baso % (Auto) 0.3 Lymph # (Auto) 0.39 L [place] # (Auto) 0.0 L Eos # (Auto) 0.0 Baso # (Auto) 0.0 Abs Immat Gran (auto) 0.08 H Absolute Neuts (auto) 7.2 H Absolute Nucleated RBC 0.000 Nucleated RBC % 0.0 Sodium 134 L Potassium 4.6 Chloride 105 Carbon Dioxide 21 L Anion Gap 8 BUN 14 Creatinine 0.89 Estim Creat Clear Calc 85 Estimated GFR > 60 Glucose 110 Lactic Acid 2.8 H 1.2 Calcium 9.7 Total Bilirubin 0.9 AST 29 ALT 33 Alkaline Phosphatase 86 Total Protein 7.7 Albumin 4.2 Urine Color Yellow Urine Appearance Cloudy H Urine pH 6.0 Ur Specific [place] 1.020 Urine Protein Trace Urine Glucose (UA) Negative Urine Ketones Negative Ur Blood (Man) 2+ H Urine Nitrate Negative Urine Bilirubin Negative Urine Urobilinogen 0.2 Leukocyte Esterase Rfl 2+ H Urine RBC 6-10 H Urine WBC 6-10 H Ur Squamous Epith Cells Many H Urine Bacteria 2+ H Urine Casts 0-2 Influenza A (RT-PCR) Negative Influenza B (RT-PCR) Negative RSV (RT-PCR) Negative SARS-CoV-2 RNA (RT-PCR) Negative
--- NOTE | 2025-08-11 07:45 | WPDHPUPDATE1 ---
History and Physical Update Update Date/Time: 08/11/25 07:45 History and Physical has been reviewed, including an updated exam of the patient. There are NO changes in the patient's condition. Risks, benefits, and alternatives have been discussed and questions answered. Patient agrees to proceed with procedure.
--- NOTE | 2025-08-11 08:16 | WPDANESEPPF ---
Anes - Initial Pre Proc Eval Procedure: Operation Date: 08/11/25 09:30 Proposed Procedures p Cystoscopy, Right Retrograde Pyelogram, Possible Right Stent Placement - Nabeel Darden MD Date/Time: 08/11/25 08:16 Surgeon: Tito Manning MD Pre Op Diagnosis: post op hydronephroasis Patient Data Age: 40 Gender: F Height: 1.68 m Weight: 95.9 kg Last Vital Signs Temp 37.7 C H 08/11/25 03:37 Pulse 97 08/11/25 03:37 Resp 18 08/11/25 03:37 BP 125/65 08/11/25 03:37 Pulse Ox 98 08/11/25 03:37 O2 Del Method Room Air 08/10/25 20:00 Allergies Allergy/AdvReac Type Severity Reaction Status Date / Time No Known Allergies Allergy Unknown Verified 08/10/25 15:16 Home Medications ?Medication ?Instructions ?Recorded ?Confirmed ?Type ibuprofen 600 mg tablet 600 mg PO Q6H PRN pain #30 tabs 08/05/25 08/10/25 Rx oxycodone-acetaminophen 5 mg-325 1 tablet PO Q6H PRN pain #28 tabs 08/05/25 08/10/25 Rx mg tablet Laboratory Tests 08/10/25 08/10/25 08/10/25 12:02 12:21 15:26 WBC 7.8 K/mm3 (4.5-10.0) RBC 4.77 M/mm3 (4.2-5.4) Hgb 14.2 g/dL (12.0-15.0) Hct 42.4 % (37.0-47.0) MCV 88.9 fl (80-100) MCH 29.8 pg (26-34) MCHC 33.5 g/dl (32-36) RDW 12.5 % (11.5-14.5) Plt Count 251 k/mm3 (150-375) MPV 10.0 fl (7.4-10.4) Immature Gran % (Auto) 1.0 H % (0-0.5) Neut % (Auto) 92.7 H % (45.5-73.1) Lymph % (Auto) 5.0 L % (18.3-44.2) [place] % (Auto) 0.5 L % (2.6-8.5) Eos % (Auto) 0.5 % (0-4.4) Baso % (Auto) 0.3 % (0.2-1.2) Lymph # (Auto) 0.39 L K/mm3 (0.9-3.2) [place] # (Auto) 0.0 L K/mm3 (0.1-0.6) Eos # (Auto) 0.0 K/mm3 (0-0.3) Baso # (Auto) 0.0 K/mm3 (0.0-0.1) Abs Immat Gran (auto) 0.08 H K/mm3 (0.00-0.031) Absolute Neuts (auto) 7.2 H K/mm3 (1.3-6.7) Absolute Nucleated RBC 0.000 K/mm3 (0.0-0.012) Nucleated RBC % 0.0 % (0.0-0.2) Sodium 134 L mmol/L (137-145) Potassium 4.6 mmol/L (3.4-5.0) Chloride 105 mmol/L (98-107) Carbon Dioxide 21 L mmol/L (22-30) Anion Gap 8 mmol/L (4-12) BUN 14 mg/dL (7-17) Creatinine 0.89 mg/dL (0.7-1.0) Estim Creat Clear Calc 85 ml/min Estimated GFR > 60 (59 - ) Glucose 110 mg/dL (65-110) Lactic Acid 2.8 H mmol/L 1.2 mmol/L (0.7-2.0) (0.7-2.0) Calcium 9.7 mg/dL (8.4-10.2) Total Bilirubin 0.9 mg/dL (0.2-1.3) AST 29 U/L (14-36) ALT 33 U/L (6-35) Alkaline Phosphatase 86 U/L (38-126) Total Protein 7.7 g/dL (6.3-8.2) Albumin 4.2 g/dL (3.5-5.1) Urine Color Yellow (Yellow) Urine Appearance Cloudy H (Clear) Urine pH 6.0 (5.0-9.0) Ur Specific [place] 1.020 (1.001-1.035) Urine Protein Trace mg/dL (Negative) Urine Glucose (UA) Negative mg/dL (Negative) Urine Ketones Negative mg/dL (Negative) Ur Blood (Man) 2+ H (Negative) Urine Nitrate Negative (Negative) Urine Bilirubin Negative (Negative) Urine Urobilinogen 0.2 mg/dL (<2.0) Leukocyte Esterase Rfl 2+ H SANTANA/UL (Negative) Urine RBC 6-10 H /hpf (0-2) Urine WBC 6-10 H /hpf (0-3) Ur Squamous Epith Cells Many H /hpf (Few) Urine Bacteria 2+ H /hpf Urine Casts 0-2 Influenza A (RT-PCR) Negative (Negative) Influenza B (RT-PCR) Negative (Negative) RSV (RT-PCR) Negative (Negative) SARS-CoV-2 RNA (RT-PCR) Negative (Negative) Patient hx anesthesia problems: none Family hx anesthesia problems: none Results Review: All pre-operative results and documents have been reviewed as part of the pre-operative evaluation. [facility] Past Medical History Medical History (Updated 08/11/25 @ 08:17 by Niraj Pastrana MD) Sepsis Hydronephrosis Surgical History Surgical History (Updated 08/11/25 @ 08:17 by Niraj Pastrana MD) History of hysterectomy No pertinent past surgical history Family History Family History Father Hypertension Mother Hypertension Social History Social History Smoking status: Light tobacco smoker Tobacco type: cigarettes Second hand tobacco smoke exposure: No Additional smoking assessment comments: 4-5 CIGS PER WEEK-20 Alcohol intake: current Drinks per week: 8 Substance use: never Substance use type: does not use Lack of Transportation: No Lack of Food: Never True Current Housing: I Have Housing Concerned About Future Housing: Decline to Answer Difficulty Paying Gas/Electric Bills: Decline to Answer Difficulty Paying for Meds: Decline to Answer Currently Unemployed: Decline to Answer Education: Decline to Answer Difficulty w/ Childcare or Family Care: Decline to Answer Living arrangements: with family Occupation/Education: occupation Gender identity (if verbalized by the patient): Female Spiritual care concerns: No Anes - Eval Final PreProcedure Day of Procedure 08/11/25 08:16 Patient weight: obese Heart: regular rate and rhythm Lungs: clear to auscultation Airway: Mallampati scale class II Neurological: alert and oriented Last oral intake: >/= 8 hours ASA classification: II Emergent: no Anesthetic plan: proceed Anesthesia type and monitoring: general LMA and standard monitoring Results Review: All pre-operative results and documents have been reviewed as part of the pre-operative evaluation. Informed Consent: The patient's anesthetic plan and its attendant risks and benefits were discussed with the patient/family/POA. Questions were solicited and answers provided to the satisfaction of the patient/family/POA.
[2025-08-11] MEDS: ceFAZolin 2 GM in SODIUM CHLORIDE 0.9% IV 50 ML 100 ML IVPB (09:40)
[2025-08-11] MEDS: LACTATED RINGERS 1,000 ML 30 ML IV CONT (10:18)
--- NOTE | 2025-08-11 10:21 | W.PM.PROC2 ---
Procedure Note - Detailed Date of Procedure 08/11/25 Pre-op Diagnosis post op hydronephroasis Post-op Diagnosis Same Procedure Performed 1. Cystoscopy 2. Right ureteral catheterization 3. Right retrograde pyelogram with intraoperative interpretation 4. Right diagnostic ureteroscopy Surgeon Nabeel Darden MD Anesthesia General Findings 1. Cystourethroscopy revealed orthotopic ureteral orifices bilaterally. There are no suspicious lesions, tumors, active bleeding, or stones in the lower urinary tract. 2. Right retrograde pyelogram using a 50 50 mixture of contrast and saline showed an area of narrowing in the right distal ureter a few cm proximal to the right ureteral orifice with contrast extravasation medially. There was minimal contrast extending more proximally into the ureter. 3. I was able to navigate a wire past this area of narrowing and up to the level of the right kidney under fluoroscopy. I was unable to advance a 5 Singaporean open-ended catheter over top of the wire more proximal to that area of ureteral injury. 4. I attempted to advance a 4.8 Singaporean variable length stent over top of the wire but was meeting resistance at the area of ureteral injury 5. Right diagnostic ureteroscopy revealed narrowing at the site of injury but no visible suture or grossly visible ureteral injury. I was unable to advance the 2nd wire past this area of narrowing. At this point I aborted further attempts at placing a right ureteral stent in retrograde fashion Description of Procedure After informed consent was obtained, the patient was brought back to the operating theatre and placed in the supine position on the operating table. Pre-operative antibiotics were confirmed to have been administered. Anesthesia was induced. The patient was moved into the dorsal lithotomy position and prepped and draped in the standard sterile fashion for an endoscopic case. All pressure points were padded. Bilateral sequential compression devices were on and noted to be functioning. A formal timeout was performed with Dr. Darden in attendance to confirm the correct patient, site/laterality, and procedure and all were in agreement to proceed. To begin with, I atraumatically advanced a lubricated 22-Singaporean rigid cystoscope transurethrally into the patient's bladder. Pancystoscopy was performed with findings as noted above. Attention was then turned to the right ureteral orifice, which was gently cannulated with a Sensor wire which was advanced up to the level of the right distalmost ureter under fluoroscopy. Over top of the wire, a 5-Singaporean open ended catheter was advanced to the level of the distal ureter. The wire was removed keeping the open-ended catheter in place and a right retrograde pyelogram was performed using a 50:50 mixture of saline and contrast with findings as noted above. Notably, the patient had an area of narrowing in the right distal ureter a few cm proximal to the ureteral orifice with contrast extravasation medially. I then replaced the Sensor wire through the open-ended catheter and under fluoroscopic guidance I was able to negotiate the wire proximal to this area of narrowing and up to the level of the right kidney under fluoroscopy. I attempted to pass the open-ended catheter over the Sensor wire past this area of narrowing but was meeting resistance and was unable to advance the open-ended catheter proximal to this area of narrowing. Next, I advanced a 4.8 Singaporean variable length double-J ureteral stent over top of the Sensor wire to attempt retrograde placement of the stent. Unfortunately I was meeting resistance at the area of narrowing in the right distal ureter. The stent was unable to be passed over the wire. I replaced the open-ended catheter over the Sensor wire and in Seldinger fashion I removed the Sensor wire while keeping the open-ended catheter in place at the level of the right distal ureter just distal to the area of ureteral injury. I then was able to negotiate an angle tip Glidewire past this area up to the level of the right kidney under fluoroscopy. I again attempted to advance the open-ended catheter over the Glidewire but was again meeting resistance. I then removed the cystoscope and secured the Glidewire to the drapes with a hemostat. I then inserted a semi rigid ureteral scope transurethrally into the bladder and cannulated the right ureteral orifice with a 2nd safety Sensor wire. I then performed right diagnostic ureteroscopy and was able to advance the scope to the level of narrowing in the right distal ureter. There was no grossly evident ureteral injury nor suture material visualized. I attempted to cannulate the true lumen of the right ureter with the 2nd wire but this was coiling backwards on itself. At this point I elected to abort further attempts at ureteral stent placement in retrograde fashion. The ureteral scope and wires were removed. I drained the patient's bladder through the cystoscope and removed the cystoscope, essentially concluding the case. At the conclusion of the case all sponge, instrument, and sharp counts were correct x 2. The patient was then awoken from anesthesia and taken to the recovery room in stable condition. The patient tolerated the procedure well and there were no immediate complications noted. Disposition: The patient will be kept NPO. I spoke with the interventional radiologist at [facility], who will attempt placement of a right nephrostomy tube later today. As well, I communicated the intraoperative findings with my colleague Dr. Duran, who indicated they will plan to meet with the patient in the upcoming weeks in the office to discuss right ureteral reimplantation surgery. The patient's was provided with an update following the surgery all questions are answered to his satisfaction at the conclusion of our discussion.
[2025-08-11] MEDS: fentaNYL CITRATE INJ (*CRX) 100 MCG/2 ML VIAL 25 MCG IV PUSH (10:37)
[2025-08-11] MEDS: MIDAZOLAM HCL (*CRX) 2 MG/2 ML VIAL 1 MG IV PUSH (11:03)
--- NOTE | 2025-08-11 13:58 | P.PNOB_ITS ---
DISTRIBUTION SUPERINTENDENT - A/P Assessment and plan (1) Intraoperative ureteral injury: Code(s): N99.81 - Other intraoperative complications of genitourinary system Status: Acute Assessment and Plan: Patient is status post cystoscopy, right are GP, attempt at stent placement Fluoroscopy revealed a narrowing of the Right ureter at the level of the vaginal cuff Suspect injury to ureter at the time of hysterectomy Ureteral stent was unable to be placed patient will have to remain inpatient overnight for placement of right nephrostomy tube by IR Will continue with Zosyn, urine cultures pending Will continue oxycodone and Tylenol for pain management (2) Hydronephrosis: Qualifiers: Hydronephrosis type: unspecified Qualified Code(s): N13.30 - Unspecified hydronephrosis Code(s): N13.30 - Unspecified hydronephrosis Status: Acute Postoperative Procedures: Procedures Operation Date: 08/11/25 09:30 Actual Procedure Side Surgeon p Cystoscopy, Right Retrograde Pyelogram, Right Diagnostic Ureteroscopy Right Nabeel Darden MD Operation Date: 08/12/25 11:00 <No data on this case meets the specified criteria> Time Spent With Patient Time: Total time spent is greater than 50% in coordination of care (as documented) at patient's floor/unit and/or counseling patient: Time with patient: less than 15 minutes DISTRIBUTION SUPERINTENDENT- PN:Subj Post-Op Subjective Date/time seen: 08/11/25 13:58 Interval history: patient resting comfortably in bed after cystoscopy, right RGP, attempt at stent placement. Patient is frustrated that she will need a nephrostomy placement. She is frustrated she will have to stay another night in the hospital for this to be done. Subjective: patient has no complaints and pain is well controlled Review of Systems 2 Review of Systems: All systems reviewed & are unremarkable except as noted in HPI and below Exam 2 Const: General: cooperative and comfortable Resp: Effort & Inspection: normal respiratory effort and able to speak in complete sentences Cardio: Rate: regular rate GI: Inspection: incision (Pfannenstiel incision) GI Palp: Yes abdominal tenderness DISTRIBUTION SUPERINTENDENT - PN: Obj Data Vital Signs Vital Signs: Vital Signs - 24 hr 08/10/25 14:09 08/10/25 16:00 08/10/25 17:51 Temperature 98.8 F Pulse Rate 101 H 99 Respiratory Rate 22 H 21 H Blood Pressure 103/62 106/64 Pulse Oximetry 93 98 Oxygen Delivery Room Air Oxygen Flow Rate 08/10/25 20:00 08/10/25 20:00 08/10/25 20:35 Temperature 98.0 F 98.0 F Pulse Rate 103 H 111 H 103 H Respiratory Rate 18 20 18 Blood Pressure 92/57 L 92/57 L Pulse Oximetry 98 95 98 Oxygen Delivery Room Air Oxygen Flow Rate 08/10/25 22:42 08/10/25 23:24 08/11/25 03:35 Temperature 103.0 F H 102.2 F H 100 F H Pulse Rate 111 H 101 H Respiratory Rate 20 20 Blood Pressure 104/53 L 127/66 Pulse Oximetry 95 97 Oxygen Delivery Oxygen Flow Rate 08/11/25 03:37 08/11/25 09:21 08/11/25 10:18 Temperature 100 F H 98 F 97.6 F Pulse Rate 97 64 84 Respiratory Rate 18 16 15 Blood Pressure 125/65 112/72 91/45 L Pulse Oximetry 98 96 93 Oxygen Delivery Room Air Trach Collar Oxygen Flow Rate 8 08/11/25 10:30 08/11/25 10:45 08/11/25 11:00 Temperature Pulse Rate 84 91 82 Respiratory Rate 15 13 13 Blood Pressure 104/63 105/63 107/57 L Pulse Oximetry 97 94 94 Oxygen Delivery Simple Face Mask Room Air Room Air Oxygen Flow Rate 8 08/11/25 11:15 08/11/25 11:30 08/11/25 11:43 Temperature 99.5 F Pulse Rate 77 80 75 Respiratory Rate 13 18 18 Blood Pressure 108/60 115/71 113/68 Pulse Oximetry 94 94 95 Oxygen Delivery Room Air Room Air Room Air Oxygen Flow Rate 08/11/25 12:00 08/11/25 12:15 Temperature 99.1 F 98.5 F Pulse Rate 88 79 Respiratory Rate 16 16 Blood Pressure 111/63 126/81 Pulse Oximetry 96 79 L Oxygen Delivery Oxygen Flow Rate Intake/Output Intake/Output: Intake & Output 08/08/25 08/09/25 08/10/25 08/11/25 23:59 23:59 23:59 23:59 Intake Total 0 370 Balance 0 370 Meds/Results Medications: Active Medications Generic Name Dose Route Start Last Admin Trade Name Freq PRN Reason Stop Dose Admin Acetaminophen 1,000 mg 08/10/25 14:58 08/10/25 22:42 Acetaminophen 500 Mg Tablet PO 1,000 mg Q6H PRN Administration Mild Pain (1-3) or Fever Fentanyl Citrate 25 mcg 08/11/25 09:34 08/11/25 10:37 Fentanyl Citrate Inj (*Crx) 100 Mcg/2 Ml Vial IV PUSH 25 mcg Q2M PRN Administration Pain Lactated Ringer's 1,000 mls @ 30 mls/hr 08/11/25 09:35 08/11/25 11:46 Lr - Lactated Ringers Iv IV CONT Infused .Q24H [facility] Infusion Lactated Ringer's 1,000 mls @ 30 mls/hr 08/11/25 09:35 Lr - Lactated Ringers Iv IV CONT .Q24H [facility] Ondansetron HCl 4 mg 08/11/25 09:34 Ondansetron Inj 4 Mg/2 Ml Vial IV PUSH ONCE PRN Nausea Oxycodone HCl 5 mg 08/10/25 14:57 08/10/25 18:46 Oxycodone Hcl (*Crx) 5 Mg Tab Ir PO 5 mg Q4H PRN Administration Pain Rated 7-10 Oxycodone HCl 5 mg 08/11/25 09:34 Oxycodone Hcl (*Crx) 5 Mg Tab Ir PO ONCE PRN Pain Radiology Results: ITS Impressions Chest X-Ray 08/10/25 12:30 IMPRESSION: 1. No acute cardiopulmonary findings. Abdomen/Pelvis CT 08/10/25 13:03 IMPRESSION: 1. Mild right hydronephrosis extending to the region of the right ovary and vaginal cuff post recent hysterectomy without evident obstructing stone which raises concern for ligation or injury of the right ureter. 2. Minimal free intraperitoneal gas and fluid at the uterine fossa which is likely residual postoperative change. Retrograde Pyelogram 08/11/25 12:04 IMPRESSION: 1. Fluoroscopy utilized during cystoscopy and right retrograde pyelogram. Suggestion of some extraluminal extravasation of contrast in the pelvis. See procedure note for further detail. Labs 08/10/25 12:02 08/10/25 12:02 Labs: Laboratory Results - last 24 hr 08/10/25 15:26 Lactic Acid 1.2
[2025-08-11] MEDS: PIPERACILLIN/TAZOBACTAM SOD 3.375 GM in SODIUM CHLORIDE 0.9% IV 50 ML 100 ML IVPB (16:19)
[2025-08-12] VITALS (13 sets, daily range): BP systolic 101–130; BP diastolic 52–75; PULSE 56–77; RESP 10–18; TEMP 36.3–37.1; O2SAT 94–100
[2025-08-12 05:39] LABS: Hematocrit 37.7 % (37.0-47.0); Hemoglobin 12.3 g/dL (12.0-15.0); Immature Granulocyte Percent A 0.8 % (0-0.5); Lymphocytes Absolute Auto 1.16 K/mm3 (0.9-3.2); Mean Corpuscular HGB Conc 32.6 g/dl (32-36); Mean Corpuscular Hemoglobin 29.7 pg (26-34); Mean Corpuscular Volume 91.1 fl (80-100); Nucleated Red Blood Cells Absolute Auto 0.000 K/mm3 (0.0-0.012); Nucleated Red Blood Cells Perc 0.0 % (0.0-0.2); Platelet Count Result 226 k/mm3 (150-375); Red Blood Count 4.14 M/mm3 (4.2-5.4); White Blood Count 9.2 K/mm3 (4.5-10.0)
[2025-08-12 05:48] LABS: INR 1.0; Prothrombin Time 13.7 Seconds (11.1-14.7)
[2025-08-12 05:49] LABS: Partial Thromboplastin Time 29.4 Seconds (22.3-36.8)
[2025-08-12 06:15] LABS: Anion Gap 4 mmol/L (4-12); Blood Urea Nitrogen 11 mg/dL (7-17); Calcium 8.8 mg/dL (8.4-10.2); Carbon Dioxide 25 mmol/L (22-30); Chloride 108 mmol/L (98-107); Estimated CRCL calculation 106 ml/min; Estimated Glomerular Filt Rate > 60; Glucose 124 mg/dL (65-110); Potassium 3.7 mmol/L (3.4-5.0); Sodium 137 mmol/L (137-145)
--- NOTE | 2025-08-12 07:52 | WPDHPUPDATE1 ---
History and Physical Update Update Date/Time: 08/12/25 07:52 History and Physical has been reviewed, including an updated exam of the patient. There are NO changes in the patient's condition. Risks, benefits, and alternatives have been discussed and questions answered. Patient agrees to proceed with procedure.
[2025-08-12] MEDS: LACTATED RINGERS 1,000 ML 30 ML IV CONT (08:15)
--- NOTE | 2025-08-12 08:16 | P.PNAN_ITS ---
Anes - Eval Final PreProcedure Day of Procedure 08/12/25 08:16 Patient weight: obese Heart: regular rate and rhythm Lungs: clear to auscultation Airway: Mallampati scale class II Neurological: alert and oriented Last oral intake: >/= 8 hours ASA classification: II Emergent: no Anesthetic plan: proceed Anesthesia type and monitoring: general LMA and standard monitoring Results Review: All pre-operative results and documents have been reviewed as part of the pre- operative evaluation. Informed Consent: The patient's anesthetic plan and its attendant risks and benefits were discussed with the patient/family/POA. Questions were solicited and answers provided to the satisfaction of the patient/family/POA.
[2025-08-12] MEDS: ceFAZolin 2 GM in SODIUM CHLORIDE 0.9% IV 50 ML 100 ML IVPB (08:51)
[2025-08-12] MEDS: LIDOCAINE 2% GEL UROJET 10 ML PKG MUCOUS MEM (09:04)
[2025-08-12] MEDS: fentaNYL CITRATE INJ (*CRX) 100 MCG/2 ML VIAL 25 MCG IV PUSH ×4 (09:50→10:09)
[2025-08-12] MEDS: MIDAZOLAM HCL (*CRX) 2 MG/2 ML VIAL 1 MG IV PUSH (10:30)
--- NOTE | 2025-08-12 11:11 | W.PM.PROC2 ---
Procedure Note - Detailed Date of Procedure 08/12/25 Pre-op Diagnosis Post-op hydronephroasis Post-op Diagnosis Same Procedure Performed Cystoscopy, right retrograde pyelography, right ureteroscopy, attempted right ureter pleural stent placement Surgeon Kvng Long MD Anesthesia General Findings Obstructed right distal ureter Description of Procedure patient is brought to the operative suite where she is prepped and draped in routine sterile fashion while in dorsal lithotomy position after the uneventful induction of a general LMA anesthetic. Cystoscopy was undertaken with a 19 F rigid cystoscope. As before, her bladder is endoscopically normal with orthotopic ureteral orifices bilaterally. A 0.035 in glidewire is advanced into the distal ureter were a point of obstruction is met. I performed rigid ureteroscopy with low pressure flow. At this site of obstruction there was no apparent ureteral lumen. With some manipulation using an angled Glidewire and torque device I was able to advance a guidewire towards her right kidney. Full I attempted to dilate this area of apparent obstruction with an 8 F 10 F dilator but was unable to easily pass either beyond that site. Likewise, I was unable to place a 4.8 F ureteral stent. I did use an 8 angiographic catheter with an unusual amount of pressure to advanced the catheter beyond the area of obstruction. With retrograde injection it appears that the wire is not in the ureteral lumen but likely in the retroperitoneum. In light of this I opted not to pursue further. She patient is scheduled for placement of a percutaneous nephrostomy tube later today Drains No Packing No Pathology None sent
--- NOTE | 2025-08-12 11:29 | WPDMODSED ---
Moderate Sedation Note-Pt Data Patient Data Diagnosis: iatrocenic right ureteral injury Present Complaint: iatrocenic right ureteral injury Procedure to be performed/Plan: right sided ct guided percutaneous nephrostomy tube placement Allergies Allergy/AdvReac Type Severity Reaction Status Date / Time No Known Allergies Allergy Unknown Verified 08/10/25 15:16 Home Medications ?Medication ?Instructions ?Recorded ?Confirmed ?Type ibuprofen 600 mg tablet 600 mg PO Q6H PRN pain #30 tabs 08/05/25 08/10/25 Rx oxycodone-acetaminophen 5 mg-325 1 tablet PO Q6H PRN pain #28 tabs 08/05/25 08/10/25 Rx mg tablet Current Medications: Active Medications Acetaminophen (Acetaminophen 500 Mg Tablet) 1,000 mg PO Q6H PRN PRN Reason: Mild Pain (1-3) or Fever Last Admin: 08/10/25 22:42 Dose: 1,000 mg Fentanyl Citrate (Fentanyl Citrate Inj (*Crx) 100 Mcg/2 Ml Vial) 25 mcg IV PUSH Q2M PRN PRN Reason: Pain Last Admin: 08/11/25 10:37 Dose: 25 mcg Fentanyl Citrate (Fentanyl Citrate Inj (*Crx) 100 Mcg/2 Ml Vial) 25 mcg IV PUSH Q2M PRN PRN Reason: Pain Last Admin: 08/12/25 10:09 Dose: 25 mcg Lactated Ringer's (Lr - Lactated Ringers Iv) 1,000 mls @ 30 mls/hr IV CONT .Q24H [facility] Last Infusion: 08/11/25 11:46 Dose: Infused Lactated Ringer's (Lr - Lactated Ringers Iv) 1,000 mls @ 30 mls/hr IV CONT .Q24H [facility] Last Admin: 08/11/25 15:16 Dose: Not Given Lactated Ringer's (Lr - Lactated Ringers Iv) 1,000 mls @ 30 mls/hr IV CONT .Q24H [facility] Last Infusion: 08/12/25 10:54 Dose: Infused Lactated Ringer's (Lr - Lactated Ringers Iv) 1,000 mls @ 30 mls/hr IV CONT .Q24H [facility] Ondansetron HCl (Ondansetron Inj 4 Mg/2 Ml Vial) 4 mg IV PUSH ONCE PRN PRN Reason: Nausea Ondansetron HCl (Ondansetron Inj 4 Mg/2 Ml Vial) 4 mg IV PUSH ONCE PRN PRN Reason: Nausea Oxycodone HCl (Oxycodone Hcl (*Crx) 5 Mg Tab Ir) 5 mg PO Q4H PRN PRN Reason: Pain Rated 7-10 Last Admin: 08/10/25 18:46 Dose: 5 mg Oxycodone HCl (Oxycodone Hcl (*Crx) 5 Mg Tab Ir) 5 mg PO ONCE PRN PRN Reason: Pain Sedation/Anesthesia: No previous sedation/anesthesia problems (including family history). [facility] Past Medical History Medical History (Updated 08/11/25 @ 14:02 by Tito Manning MD) Sepsis Hydronephrosis Surgical History Surgical History (Updated 08/11/25 @ 08:17 by Niraj Pastrana MD) History of hysterectomy No pertinent past surgical history Family History Family History Father Hypertension Mother Hypertension Social History Social History Smoking status: Light tobacco smoker Tobacco type: cigarettes Second hand tobacco smoke exposure: No Additional smoking assessment comments: 4-5 CIGS PER WEEK-20 Alcohol intake: current Drinks per week: 8 Substance use: never Substance use type: does not use Lack of Transportation: No Lack of Food: Never True Current Housing: I Have Housing Concerned About Future Housing: Decline to Answer Difficulty Paying Gas/Electric Bills: Decline to Answer Difficulty Paying for Meds: Decline to Answer Currently Unemployed: Decline to Answer Education: Decline to Answer Difficulty w/ Childcare or Family Care: Decline to Answer Living arrangements: with family Occupation/Education: occupation Gender identity (if verbalized by the patient): Female Spiritual care concerns: No Mod Sed Physical Exam Physical Exam Pre Procedural Exam: Normal: Appearance, Throat, Lungs, Heart Rate and Heart Rhythm Hours since solid foods: 13 Hours since liquid intake: 13 Mallampati Classification: class II Internal Medicine - PN: Obj Da Vital Signs Vital Signs: Vital Signs - 24 hr 08/11/25 11:30 08/11/25 11:43 08/11/25 12:00 Temperature 99.5 F 99.1 F Pulse Rate 80 75 88 Respiratory Rate 18 18 16 Blood Pressure 115/71 113/68 111/63 Pulse Oximetry 94 95 96 Oxygen Delivery Room Air Room Air Oxygen Flow Rate 08/11/25 12:15 08/11/25 14:25 08/11/25 16:00 Temperature 98.5 F 98.5 F 98.1 F Pulse Rate 79 87 85 Respiratory Rate 16 16 16 Blood Pressure 126/81 114/71 116/76 Pulse Oximetry 79 L 95 94 Oxygen Delivery Oxygen Flow Rate 08/11/25 19:50 08/11/25 20:00 08/11/25 23:22 Temperature 97.6 F 97.6 F Pulse Rate 75 75 63 Respiratory Rate 18 18 18 Blood Pressure 124/78 108/61 Pulse Oximetry 96 96 96 Oxygen Delivery Room Air Oxygen Flow Rate 08/12/25 03:27 08/12/25 08:00 08/12/25 09:38 Temperature 97.6 F 97.4 F L 97.7 F Pulse Rate 71 69 77 Respiratory Rate 18 16 10 L Blood Pressure 115/70 123/72 103/52 L Pulse Oximetry 98 97 96 Oxygen Delivery Room Air Simple Face Mask Oxygen Flow Rate 8 08/12/25 09:55 08/12/25 10:10 08/12/25 10:25 Temperature Pulse Rate 68 56 L 58 L Respiratory Rate 10 L 14 12 Blood Pressure 130/75 128/74 109/71 Pulse Oximetry 98 98 97 Oxygen Delivery Room Air Room Air Room Air Oxygen Flow Rate 08/12/25 10:40 08/12/25 10:55 Temperature Pulse Rate 67 65 Respiratory Rate 12 14 Blood Pressure 108/65 103/64 Pulse Oximetry 96 97 Oxygen Delivery Room Air Room Air Oxygen Flow Rate Intake/Output Intake/Output: Intake & Output 08/09/25 08/10/25 08/11/25 08/12/25 23:59 23:59 23:59 23:59 Intake Total 0 370 540 Balance 0 370 540 Meds/Results Medications: Active Medications Generic Name Dose Route Start Last Admin Trade Name Freq PRN Reason Stop Dose Admin Acetaminophen 1,000 mg 08/10/25 14:58 08/10/25 22:42 Acetaminophen 500 Mg Tablet PO 1,000 mg Q6H PRN Administration Mild Pain (1-3) or Fever Fentanyl Citrate 25 mcg 08/11/25 09:34 08/11/25 10:37 Fentanyl Citrate Inj (*Crx) 100 Mcg/2 Ml Vial IV PUSH 25 mcg Q2M PRN Administration Pain Fentanyl Citrate 25 mcg 08/12/25 08:16 08/12/25 10:09 Fentanyl Citrate Inj (*Crx) 100 Mcg/2 Ml Vial IV PUSH 25 mcg Q2M PRN Administration Pain Lactated Ringer's 1,000 mls @ 30 mls/hr 08/11/25 09:35 08/11/25 11:46 Lr - Lactated Ringers Iv IV CONT Infused .Q24H [facility] Infusion Lactated Ringer's 1,000 mls @ 30 mls/hr 08/11/25 09:35 08/11/25 15:16 Lr - Lactated Ringers Iv IV CONT Not Given .Q24H [facility] Lactated Ringer's 1,000 mls @ 30 mls/hr 08/12/25 08:20 08/12/25 10:54 Lr - Lactated Ringers Iv IV CONT Infused .Q24H [facility] Infusion Lactated Ringer's 1,000 mls @ 30 mls/hr 08/12/25 08:20 Lr - Lactated Ringers Iv IV CONT .Q24H [facility] Ondansetron HCl 4 mg 08/11/25 09:34 Ondansetron Inj 4 Mg/2 Ml Vial IV PUSH ONCE PRN Nausea Ondansetron HCl 4 mg 08/12/25 08:16 Ondansetron Inj 4 Mg/2 Ml Vial IV PUSH ONCE PRN Nausea Oxycodone HCl 5 mg 08/10/25 14:57 08/10/25 18:46 Oxycodone Hcl (*Crx) 5 Mg Tab Ir PO 5 mg Q4H PRN Administration Pain Rated 7-10 Oxycodone HCl 5 mg 08/11/25 09:34 Oxycodone Hcl (*Crx) 5 Mg Tab Ir PO ONCE PRN Pain Radiology Results: ITS Impressions Chest X-Ray 08/10/25 12:30 IMPRESSION: 1. No acute cardiopulmonary findings. Abdomen/Pelvis CT 08/10/25 13:03 IMPRESSION: 1. Mild right hydronephrosis extending to the region of the right ovary and vaginal cuff post recent hysterectomy without evident obstructing stone which raises concern for ligation or injury of the right ureter. 2. Minimal free intraperitoneal gas and fluid at the uterine fossa which is likely residual postoperative change. Labs 08/12/25 05:12 08/12/25 05:12 Labs: Laboratory Results - last 24 hr 08/12/25 05:12 WBC 9.2 RBC 4.14 L Hgb 12.3 Hct 37.7 MCV 91.1 MCH 29.7 MCHC 32.6 RDW 12.4 Plt Count 226 MPV 10.7 H Immature Gran % (Auto) 0.8 H Neut % (Auto) 74.3 H Lymph % (Auto) 12.6 L [place] % (Auto) 10.8 H Eos % (Auto) 1.1 Baso % (Auto) 0.4 Lymph # (Auto) 1.16 [place] # (Auto) 1.0 H Eos # (Auto) 0.1 Baso # (Auto) 0.0 Abs Immat Gran (auto) 0.07 H Absolute Neuts (auto) 6.9 H Absolute Nucleated RBC 0.000 Nucleated RBC % 0.0 PT 13.7 INR 1.0 APTT 29.4 Sodium 137 Potassium 3.7 Chloride 108 H Carbon Dioxide 25 Anion Gap 4 BUN 11 Creatinine 0.70 Estim Creat Clear Calc 106 Estimated GFR > 60 Glucose 124 H Calcium 8.8 ASA Classification/Sedation ASA Classification/Sedation ASA Class: II Emergent: No Risks: Risks, benefits and alternatives explained and patient/family accepted plan for sedation. Patient re-evaluated immediately prior to sedation.
--- NOTE | 2025-08-12 14:27 | PM.TDS ---
Transfer Discharge Sum: Prov Provider Date of admission: 08/10/25 13:41 Primary care physician: Tito Manning MD Admitting clinician: Tito Manning MD Consults: 08/10/25 Consult to Physician Routine Comment: Consulting Provider: Don Duran Reason for consultation: poss ureteral injury Has provider been notified: Yes Attending physician on discharge: Tito Manning Anticipated date of transfer: 08/12/25 Receiving physician/facility: [facility] Gynecology department DS: Admitting Diagnosis Discharge Date 08/12/25 Admitting Diagnosis s/p hysterectomy intraoperative right ureteral injury DS: Discharge Diagnosis Discharge Diagnosis (1) Intraoperative ureteral injury: Code(s): N99.81 - Other intraoperative complications of genitourinary system Status: Acute (2) Hydronephrosis: Qualifiers: Hydronephrosis type: unspecified Qualified Code(s): N13.30 - Unspecified hydronephrosis Code(s): N13.30 - Unspecified hydronephrosis Status: Acute Transfer Discharge Sum: Med Medications Active and Home Medications: Home Medications ibuprofen 600 mg tablet 600 mg PO Q6H PRN pain #30 tabs 08/05/25 [Rx Confirmed 08/10/25] oxycodone-acetaminophen 5 mg-325 mg tablet 1 tablet PO Q6H PRN pain #28 tabs 08/05/25 [Rx Confirmed 08/10/25] Active Medications Acetaminophen (Acetaminophen 500 Mg Tablet) 1,000 mg PO Q6H PRN PRN Reason: Mild Pain (1-3) or Fever Last Admin: 08/10/25 22:42 Dose: 1,000 mg Transfer Discharge Sum: Hosp Hospital Course Hospital course: Kate Sanchez is a 40 year old female presented status post abdominal hysterectomy for large fibroid uterus with abdominal pain. CT scans showed right-sided hydronephrosis. Patient went for cystoscopy, right-sided retrograde pyelogram and attempt at ureteral stent placement x2. Guidewire was able to be advanced to the level of the right kidney. There was an injury to the ureter proximal to the vaginal cuff. There was a small amount of extravasation of floor seen at the medial aspect of the ureter. Since stent placement was unsuccessful, patient will need nephrostomy tube placement. Radiology was unable to attempt nephrostomy tube placement due to resolution of hydronephrosis. Recommended that patient be transferred for nephrostomy tube placement by Interventional Radiology. Patient Condition: Stable Time Spent with Patient Time attestation: Total time spent providing and/or coordinating transfer services: Total time spent: Greater than 30 minutes Exam Const: General: cooperative and comfortable Resp: Effort & Inspection: normal respiratory effort and able to speak in complete sentences Cardio: Rate: regular rate GI: Inspection: incision (Pfannenstiel incision) GI Palp: Yes abdominal tenderness DS: Data Data Completed and Pending Labs on day of discharge: Labs from last 24 hours 08/12/25 05:12 WBC 9.2 RBC 4.14 L Hgb 12.3 Hct 37.7 MCV 91.1 MCH 29.7 MCHC 32.6 RDW 12.4 Plt Count 226 MPV 10.7 H Immature Gran % (Auto) 0.8 H Neut % (Auto) 74.3 H Lymph % (Auto) 12.6 L Holt % (Auto) 10.8 H Eos % (Auto) 1.1 Baso % (Auto) 0.4 Lymph # (Auto) 1.16 Holt # (Auto) 1.0 H Eos # (Auto) 0.1 Baso # (Auto) 0.0 Abs Immat Gran (auto) 0.07 H Absolute Neuts (auto) 6.9 H Absolute Nucleated RBC 0.000 Nucleated RBC % 0.0 PT 13.7 INR 1.0 APTT 29.4 Sodium 137 Potassium 3.7 Chloride 108 H Carbon Dioxide 25 Anion Gap 4 BUN 11 Creatinine 0.70 Estim Creat Clear Calc 106 Estimated GFR > 60 Glucose 124 H Calcium 8.8 Preliminary micro results at discharge 08/10/25 12:21 Urine Culture - Preliminary Urine - Clean Catch Midstream Escherichia coli.
--- NOTE | 2025-08-12 15:03 | P.DS_ITS ---
DS: Admitting Diagnosis Discharge Date 08/12/25 Admitting Diagnosis flank pain status post hysterectomy hydronephrosis DS: Discharge Diagnosis Discharge Diagnosis (1) Intraoperative ureteral injury: Code(s): N99.81 - Other intraoperative complications of genitourinary system Status: Acute DS: Summary Hospital Course Hospital Course: 40-year-old female who presented status post abdominal hysterectomy for enlarged fibroid uterus with complaint of right-sided flank pain. Imaging in the emergency room showed right-sided hydronephrosis suspicious for ureteral injury. Patient was admitted overnight and given prophylactic Zosyn. No leukocytosis on admission but was found to be tachycardic and hypotensive. Vital stable lysed with adequate pain control. Patient underwent cystoscopy, right-sided retrograde pyelogram, attempt at ureteral stent placement x2. Patient was noted to have a partial transection of the right ureter. There is a small amount of contrast evisceration from the medial aspect of the ureter on RGP. discussed plan for right-sided nephrostomy tube with plan for ureteral reimplantation surgery in 3 months. Patient transferred to [facility] hospital for nephrostomy tube placement by Interventional Radiology. Status at Discharge Functional status at discharge: independent ambulation Overall status at discharge: patient is progressing back to baseline Time Spent with Patient Time attestation: Total time spent providing and/or coordinating discharge services: Time spent: Greater than 30 minutes Exam Const: General: cooperative and comfortable Resp: Effort & Inspection: normal respiratory effort and able to speak in complete sentences Cardio: Rate: regular rate GI: Inspection: incision (Pfannenstiel incision) GI Palp: Yes abdominal tenderness DS: Data Data Completed and Pending Labs on day of discharge: Labs from last 24 hours 08/12/25 05:12 WBC 9.2 RBC 4.14 L Hgb 12.3 Hct 37.7 MCV 91.1 MCH 29.7 MCHC 32.6 RDW 12.4 Plt Count 226 MPV 10.7 H Immature Gran % (Auto) 0.8 H Neut % (Auto) 74.3 H Lymph % (Auto) 12.6 L [place] % (Auto) 10.8 H Eos % (Auto) 1.1 Baso % (Auto) 0.4 Lymph # (Auto) 1.16 [place] # (Auto) 1.0 H Eos # (Auto) 0.1 Baso # (Auto) 0.0 Abs Immat Gran (auto) 0.07 H Absolute Neuts (auto) 6.9 H Absolute Nucleated RBC 0.000 Nucleated RBC % 0.0 PT 13.7 INR 1.0 APTT 29.4 Sodium 137 Potassium 3.7 Chloride 108 H Carbon Dioxide 25 Anion Gap 4 BUN 11 Creatinine 0.70 Estim Creat Clear Calc 106 Estimated GFR > 60 Glucose 124 H Calcium 8.8 Preliminary micro results at discharge 08/10/25 12:21 Urine Culture - Preliminary Urine - Clean Catch Midstream Escherichia coli. Discharge Plan Discharge Consulting providers: Don Duran Discharging Clinician: Tito Manning Patient Disposition: Other Activity: as tolerated and pelvic rest Diet: NPO Patient Instructions: Antibiotic Form, Cigarette Smoking and Your Health (GEN) Patient Language: Tunisian Stand Alone Forms: General Discharge Information Follow-up/Referrals: Tito Manning MD [Primary Care Provider, EXECUTIVE COORDINATOR] - 2 Weeks Discharge Medications: Continued oxycodone-acetaminophen 5-325 mg tablet 1 tablet PO Q6H PRN (Reason: pain) Qty: 28 0RF ibuprofen 600 mg tablet 600 mg PO Q6H PRN (Reason: pain) Qty: 30 0RF Date of admission: 08/10/25 13:41 Primary Care Provider: Tito Manning Admitting Provider: Tito Manning Attending physician on admission: Tito Manning Condition: Stable
[2025-08-12] MEDS: ACETAMINOPHEN 500 MG TABLET 1000 MG PO (15:40)
== END 2025-08-12 20:48 | disposition other institution (70) | DRG 920 ==
LOC: ANHED 12:35 → ANH2MED 14:02
PROVIDERS: Emergency Medicine; Urology; Admitting Provider Student in an Organized Health Care Education/Training Program; Emergency Provider Student in an Organized Health Care Education/Training Program; PCP Student in an Organized Health Care Education/Training Program; Visit Provider Student in an Organized Health Care Education/Training Program
PROC: BT1DYZZ Fluoroscopy of Right Kidney, Ureter and Bladder using Other Contrast (ICD-10-PCS; CPT 52352; principal; 2025-08-11 09:30)
DX: N99.71 Accidental puncture and laceration of a genitourinary system organ or structure during a genitourinary system procedure (principal); N13.30 Unspecified hydronephrosis; N99.81 Other intraoperative complications of genitourinary system; Z20.822 Contact with and (suspected) exposure to COVID-19
CPT/HCPCS: 36415; 71046; 74150; 74177; 74420; 80048; 80053; 81001; 83605; 85025; 85610; 85730; 87086; 87186; 87637; 96374; 96375; 99285; J0690; A9270; C1758; C1769; C1894; J1100; J1885; J2003; J2250; J2405; J2543; J2704; J3010; J7030; J7120; Q9966; Q9967